=== PATIENT | male | born 1950 | race Caucasian/White ===

== ENCOUNTER 2017-05-18 04:16 | Emergency (ER) | payer MEDICARE, BC ==
[2017-05-18] MEDS ORDERED: Nitroglycerin 2% Oint 1 GM UD Packet TOP ONE (04:28)
[2017-05-18] MEDS ORDERED: Morphine 4 MG/ML Syringe IVPUSH ONE (04:29)
[2017-05-18] MEDS ORDERED: Ondansetron 4 MG/2 ML SDV IVPUSH ONE (04:29)
[2017-05-18] MEDS ORDERED: Aspirin 81 MG Tab.Chew PO ONE (04:35)
[2017-05-18 04:56] LABS: CHLORIDE,CL 108 mmol/L (98-107); SODIUM,NA 142 mmol/L (136-148)
--- NOTE | 2017-05-18 05:20 | EDM.PDOC ---
ED HPI GENERAL MEDICAL PROBLEM - General Chief Complaint: Chest Pain Stated Complaint: HARD TIME BREATHING Time Seen by Provider: 05/18/17 05:08 - History of Present Illness INITIAL COMMENTS - FREE TEXT/NARRATIVE: HISTORY AND PHYSICAL: History of present illness: Patient 67-year-old white male history of hypertension cardiac ablation for atrial fibrillation on hypercholesterolemia presents with a concern of chest pain he states he's had off and on for 1 week with associated cold symptoms. Patient has had mild associated shortness of breath. Patient is currently on eliquis Review of systems: As per history of present illness and below otherwise all systems reviewed and negative. Past medical history: As per history of present illness and as reviewed below otherwise noncontributory. Surgical history: As per history of present illness and as reviewed below otherwise noncontributory. Social history: No reported history of drug or alcohol abuse. Family history: As per history of present illness and as reviewed below otherwise noncontributory. Physical exam: HEENT: Atraumatic, normocephalic, pupils reactive, negative for conjunctival pallor or scleral icterus, mucous membranes moist, throat clear, neck supple, nontender, trachea midline. Lungs: Clear to auscultation, breath sounds equal bilaterally, chest nontender. Heart: S1S2, regular, negative for clicks, rubs, or JVD. Abdomen: Soft, nondistended, nontender. Negative for masses or hepatosplenomegaly. Negative for costovertebral tenderness. Pelvis: Stable nontender. Genitourinary: Deferred. Rectal: Deferred. Extremities: Atraumatic, negative for cords or calf pain. Neurovascular unremarkable. Neuro: Awake, alert, oriented. Cranial nerves II through XII unremarkable. Cerebellum unremarkable. Motor and sensory unremarkable throughout. Exam nonfocal. Diagnostics: CBC CMP troponin PT/INR chest x-ray EKG influenza screen Therapeutics: IV O2 monitor aspirin 324 mg Nitropaste 1 inch Impression: #1 chest pain #2 elevated troponin Definitive disposition and diagnosis as appropriate pending reevaluation and review of above. chest Pain Score (Numeric/FACES): 3 - Related Data Allergies Allergy/AdvReac Type Severity Reaction Status Date / Time latex Allergy Blisters Verified 05/18/17 04:46 Home Meds: Home Meds Acyclovir 1 tab PO DAILY 05/18/17 [History] Apixaban [Eliquis] 1 tab PO DAILY 05/18/17 [History] Cetirizine [ZyrTEC] 1 tab PO DAILY 05/18/17 [History] Losartan [Cozaar] 50 mg PO DAILY 05/18/17 [History] Multivitamin [Multivitamins] 1 cap PO DAILY 05/18/17 [History] Sotalol [Betapace] 1 tab PO DAILY 05/18/17 [History] Spironolactone [Aldactone] 1 tab PO DAILY 05/18/17 [History] Tamsulosin [Flomax] 1 cap PO DAILY 05/18/17 [History] atorvaSTATin [Lipitor] 20 mg PO BEDTIME 05/18/17 [History] Past Medical History HEENT History: Reports: Impaired Vision, Other (See Below) Other HEENT History: Cold sores Cardiovascular History: Reports: Afib, High Cholesterol, Hypertension Gastrointestinal History: Reports: GERD Genitourinary History: Reports: BPH, Other (See Below) Other Genitourinary History: Urinary Frequency Endocrine/Metabolic History: Reports: Obesity/BMI 30+ - Past Surgical History Cardiovascular Surgical History: Reports: Cardiac Ablation Social & Family History - Family History Family Medical History: Noncontributory - Tobacco Use Smoking Status *Q: Never Smoker - Recreational Drug Use Recreational Drug Use: No ED ROS GENERAL - Review of Systems Review Of Systems: ROS reveals no pertinent complaints other than HPI. ED EXAM, GENERAL - Physical Exam Exam: See Below (See dictation) Course - Vital Signs Text/Narrative:: Patient is pain-free status post nitroglycerin aspirin I discussed transfer with Dr. Avendano at [facility] who graciously accepted the patient will be transferred via ground ambulance Last Recorded V/S: Last Vital Signs Temp 36.6 C 05/18/17 04:39 Pulse 73 05/18/17 04:45 Resp 20 05/18/17 04:45 BP 149/98 H 05/18/17 04:45 Pulse Ox 96 05/18/17 04:45 - Orders/Labs/Meds Orders: Active Orders 24 hr Category Date Time Status EKG 12 Lead [EKG Documentation Completion] [RC] STAT Care 05/18/17 04:34 Active Chest 1V Frontal [CR] Stat Exams 05/18/17 04:31 Taken INFLUENZA A+B AG SCREEN [RM] Stat Lab 04/11/18 04:58 Ordered Labs: Laboratory Tests 05/18/17 05/18/17 05/18/17 Range/Units 04:18 04:18 04:18 WBC 5.22 (4.0-11.0) K/uL RBC 5.25 (4.50-5.90) M/uL Hgb 16.0 (13.0-17.0) g/dL Hct 46.4 (38.0-50.0) % MCV 88.4 (80.0-98.0) fL MCH 30.5 (27.0-32.0) pg MCHC 34.5 (31.0-37.0) g/dL RDW Std Deviation 45.2 (28.0-62.0) fl RDW Coeff of Aamir 14 (11.0-15.0) % Plt Count 155 (150-400) K/uL MPV 9.60 (7.40-12.00) fL Nucleated RBC % 0.0 /100WBC Nucleated RBCs # 0 K/uL INR 1.03 Sodium 142 (136-148) mmol/L Potassium 4.2 (3.5-5.1) mmol/L Chloride 108 H (98-107) mmol/L Carbon Dioxide 24.7 (21.0-32.0) mmol/L BUN 23 H (7.0-18.0) mg/dL Creatinine 1.3 (0.8-1.3) mg/dL Est Cr Clr Drug Dosing TNP Estimated GFR (MDRD) 55.4 ml/min Glucose 98 (74-106) mg/dL Calcium 8.9 (8.5-10.1) mg/dL Total Bilirubin 0.9 (0.2-1.0) mg/dL AST 22 (15-37) IU/L ALT 20 (14-63) IU/L Alkaline Phosphatase 76 (46-116) U/L Troponin I 0.109 H* (0.000-0.056) ng/mL Total Protein 7.6 (6.4-8.2) g/dL Albumin 3.8 (3.4-5.0) g/dL Globulin 3.8 H (2.0-3.5) g/dL Albumin/Globulin Ratio 1.0 L (1.3-2.8) Meds: Medications Discontinued Medications Generic Name Dose Route Start Last Admin Trade Name Freq PRN Reason Stop Dose Admin Aspirin 324 mg 05/18/17 21:00 Aspirin PO BEDTIME PRIMO Aspirin 324 mg 05/18/17 04:35 05/18/17 04:37 Aspirin PO 05/18/17 04:36 324 mg ONETIME ONE Administration Morphine Sulfate 2 mg 05/18/17 04:29 05/18/17 04:43 Morphine IVPUSH 05/18/17 04:30 Not Given ONETIME ONE Nitroglycerin 1 gm 05/18/17 04:28 05/18/17 04:38 Nitro-Bid 2% TOP 05/18/17 04:29 1 gm ONETIME ONE Administration Ondansetron HCl 4 mg 05/18/17 04:29 05/18/17 04:44 Zofran IVPUSH 05/18/17 04:30 Not Given ONETIME ONE Departure - Departure Time of Disposition: 05:19 Disposition: DC/Tfer to Acute Hospital 02 Condition: Good Clinical Impression: Acute coronary syndrome - Discharge Information - My Orders Last 24 Hours: My Active Orders 05/18/17 04:31 Chest 1V Frontal [CR] Stat 05/18/17 04:34 EKG 12 Lead [EKG Documentation Completion] [RC] STAT 05/18/17 04:58 INFLUENZA A+B AG SCREEN [RM] Stat - Assessment/Plan Last 24 Hours: My Active Orders 05/18/17 04:31 Chest 1V Frontal [CR] Stat 05/18/17 04:34 EKG 12 Lead [EKG Documentation Completion] [RC] STAT 05/18/17 04:58 INFLUENZA A+B AG SCREEN [RM] Stat
[2017-05-18] MEDS ORDERED: Sodium Chloride 0.9% 10 ML Syringe FLUSH PRN (05:25)
[2017-05-18] MEDS ORDERED: Sodium Chloride 0.9% 2.5 ML Syringe FLUSH PRN (05:25)
--- NOTE | 2017-05-18 11:03 | CR ---
EXAM DATE: 05/18/17 PATIENT'S AGE: 67 Patient: LINDA MACHADO Facility: [place], [place] Site . Site : [id number] Study: XRay Chest [id number]/11/2018 4:44:14 AM Ordering Physician: Doctor Salcido Final Report: INDICATION: SOB, CP, rash TECHNIQUE: Chest 1 view COMPARISON: None FINDINGS: Cardiovascular and mediastinum: Heart size and vasculature are normal in caliber and appearance. Mediastinum is within normal limits. Lungs and pleural space: No focal consolidation. No sign of pleural effusion. No pneumothorax. Bones: No significant findings. Other: Surgical clips within the imaged abdomen IMPRESSION: No acute cardiopulmonary disease. Dictated by Magen Marin MD @ 05/18/2017 5:48:59 AM Dictated by: Magen Marin MD @ 05/18/2017 05:50:40 (Electronic Signature) Report Signed by Proxy. [facility]OSPITALRahat
[2017-05-18] MEDS ORDERED: Aspirin 81 MG Tab.Chew PO SCH (21:00)
== END 2017-05-18 06:10 ==
LOC: MW.ED 04:16
DX: I24.9 Acute ischemic heart disease, unspecified (principal); I10 Essential (primary) hypertension; E78.00 Pure hypercholesterolemia, unspecified; I48.91 Unspecified atrial fibrillation; E66.9 Obesity, unspecified; Z79.899 Other long term (current) drug therapy; Z91.040 Latex allergy status; K21.9 Gastro-esophageal reflux disease without esophagitis
CPT/HCPCS: 36415; 71045; 80053; 84484; 85027; 85610; 87804; 93005; 99285; A9270

== ENCOUNTER 2018-03-13 22:07 | Emergency (ER) | payer MEDICARE, BC ==
[2018-03-13] MEDS ORDERED: Sodium Chloride 0.9% 1,000 ML IV ONE (22:08)
[2018-03-13] MEDS ORDERED: Albuterol/Ipratropium 3.0-0.5 MG/3 ML Neb Soln NEB ONE (22:08)
[2018-03-13] MEDS ORDERED: methylPREDNISolone Sodium Succinate 125 MG/2 ML SDV IVPUSH ONE (22:09)
--- NOTE | 2018-03-13 22:09 | EDM.PDOC ---
ED HPI GENERAL MEDICAL PROBLEM - General Chief Complaint: Respiratory Problem Stated Complaint: PT HAS CHEST PAINS Time Seen by Provider: 03/13/18 22:09 Source of Information: Reports: Patient - History of Present Illness INITIAL COMMENTS - FREE TEXT/NARRATIVE: HISTORY AND PHYSICAL: History of present illness: [Patient presents with shortness of breath on initial exam is somewhat wheezy with diminished breath sounds on inspiration slight end expiratory wheeze noted no apparent distress no pursed lip breathing He has no fever nausea vomiting chills sweats no chest pain headache dizziness or palpitation no bowel or urine symptoms Medically improved with DuoNeb and Solu-Medrol Auditory O2 sat performed 95, patient's troponin is elevated at baseline he has chronic elevated troponins EKG is normal sinus rhythm no acute change, he was sent out previously for similar troponin with reevaluation in mind that ultimately discharged without any further treatment Office offered observation admission however we are on diversion at this time, he refused as he does not want to be transferred to [place] at this time ] Review of systems: As per history of present illness and below otherwise all systems reviewed and negative. Past medical history: As per history of present illness and as reviewed below otherwise noncontributory. Surgical history: As per history of present illness and as reviewed below otherwise noncontributory. Social history: No reported history of drug or alcohol abuse. Family history: As per history of present illness and as reviewed below otherwise noncontributory. Physical exam: HEENT: Atraumatic, normocephalic, pupils reactive, negative for conjunctival pallor or scleral icterus, mucous membranes moist, throat clear, neck supple, nontender, trachea midline. Lungs: Clear to auscultation, breath sounds equal bilaterally, chest nontender. Heart: S1S2, regular, negative for clicks, rubs, or JVD. Abdomen: Soft, nondistended, nontender. Negative for masses or hepatosplenomegaly. Negative for costovertebral tenderness. Pelvis: Stable nontender. Genitourinary: Deferred. Rectal: Deferred. Extremities: Atraumatic, negative for cords or calf pain. Neurovascular unremarkable. Neuro: Awake, alert, oriented. Cranial nerves II through XII unremarkable. Cerebellum unremarkable. Motor and sensory unremarkable throughout. Exam nonfocal. Diagnostics: []Influenza CBC CMP troponin EKG Chest 1 view Therapeutics: [] DuoNeb Solu-Medrol Z-Benjy Medrol Dosepak Pro-air HFA Impression: [] acute bronchitis Definitive disposition and diagnosis as appropriate pending reevaluation and review of above. - Related Data Allergies Allergy/AdvReac Type Severity Reaction Status Date / Time latex Allergy Blisters Verified 03/13/18 22:15 Home Meds: Home Meds Acyclovir 1 tab PO DAILY 05/18/17 [History] Apixaban [Eliquis] 1 tab PO DAILY 05/18/17 [History] Cetirizine [ZyrTEC] 1 tab PO DAILY 05/18/17 [History] Losartan [Cozaar] 50 mg PO DAILY 05/18/17 [History] Multivitamin [Multivitamins] 1 cap PO DAILY 05/18/17 [History] Sotalol [Betapace] 1 tab PO DAILY 05/18/17 [History] Spironolactone [Aldactone] 1 tab PO DAILY 05/18/17 [History] Tamsulosin [Flomax] 1 cap PO DAILY 05/18/17 [History] atorvaSTATin [Lipitor] 20 mg PO BEDTIME 05/18/17 [History] Past Medical History HEENT History: Reports: Impaired Vision, Other (See Below) Other HEENT History: Cold sores Cardiovascular History: Reports: Afib, High Cholesterol, Hypertension Gastrointestinal History: Reports: GERD Genitourinary History: Reports: BPH, Other (See Below) Other Genitourinary History: Urinary Frequency Endocrine/Metabolic History: Reports: Obesity/BMI 30+ Social & Family History - Family History Family Medical History: Noncontributory ED ROS GENERAL - Review of Systems Review Of Systems: See Below ED EXAM, GENERAL - Physical Exam Exam: See Below Course - Vital Signs Last Recorded V/S: Last Vital Signs Temp 97.8 F 03/13/18 22:07 Pulse 79 03/13/18 22:07 Resp 24 H 03/13/18 22:28 BP 153/83 H 03/13/18 22:07 Pulse Ox 95 03/13/18 22:28 - Orders/Labs/Meds Orders: Active Orders 24 hr Category Date Time Status EKG Documentation Completion [RC] STAT Care 03/13/18 22:08 Active RT Aerosol Therapy [RC] ASDIRECTED Care 03/13/18 22:09 Active UA RFX HARI AND CULT IF INDIC [URIN] Stat Lab 03/13/18 22:08 Ordered Labs: Laboratory Tests 03/13/18 03/13/18 Range/Units 22:13 22:13 WBC 6.97 (4.0-11.0) K/uL RBC 4.93 (4.50-5.90) M/uL Hgb 14.6 (13.0-17.0) g/dL Hct 43.6 (38.0-50.0) % MCV 88.4 (80.0-98.0) fL MCH 29.6 (27.0-32.0) pg MCHC 33.5 (31.0-37.0) g/dL RDW Std Deviation 46.6 (28.0-62.0) fl RDW Coeff of Aamir 14 (11.0-15.0) % Plt Count 184 (150-400) K/uL MPV 9.50 (7.40-12.00) fL Neut % (Auto) 52.1 (48.0-80.0) % Lymph % (Auto) 33.3 (16.0-40.0) % Sherman % (Auto) 9.8 (0.0-15.0) % Eos % (Auto) 4.2 (0.0-7.0) % Baso % (Auto) 0.6 (0.0-1.5) % Neut # (Auto) 3.6 (1.4-5.7) K/uL Lymph # (Auto) 2.3 (0.6-2.4) K/uL Sherman # (Auto) 0.7 (0.0-0.8) K/uL Eos # (Auto) 0.3 (0.0-0.7) K/uL Baso # (Auto) 0.0 (0.0-0.1) K/uL Nucleated RBC % 0.0 /100WBC Nucleated RBCs # 0 K/uL Sodium 144 (136-148) mmol/L Potassium 3.7 (3.5-5.1) mmol/L Chloride 109 H (98-107) mmol/L Carbon Dioxide 25.8 (21.0-32.0) mmol/L BUN 22 H (7.0-18.0) mg/dL Creatinine 1.4 H (0.8-1.3) mg/dL Est Cr Clr Drug Dosing 58.66 mL/min Estimated GFR (MDRD) 50.7 ml/min Glucose 105 (74-106) mg/dL Calcium 8.9 (8.5-10.1) mg/dL Total Bilirubin 0.9 (0.2-1.0) mg/dL AST 19 (15-37) IU/L ALT 19 (14-63) IU/L Alkaline Phosphatase 88 (46-116) U/L Troponin I 0.114 H* (0.000-0.056) ng/mL Total Protein 7.2 (6.4-8.2) g/dL Albumin 3.5 (3.4-5.0) g/dL Globulin 3.7 (2.6-4.0) g/dL Albumin/Globulin Ratio 0.9 (0.9-1.6) Meds: Medications Discontinued Medications Generic Name Dose Route Start Last Admin Trade Name Freq PRN Reason Stop Dose Admin Albuterol/Ipratropium 3 ml 03/13/18 22:08 03/13/18 22:20 Duoneb 3.0-0.5 Mg/3 Ml NEB 03/13/18 22:09 3 ml ONETIME ONE Administration Albuterol/Ipratropium Confirm 03/13/18 22:10 03/13/18 22:21 Duoneb 3.0-0.5 Mg/3 Ml Administered 03/13/18 22:11 Not Given Dose 3 ml .ROUTE .STK-MED ONE Sodium Chloride 1,000 mls @ 999 mls/hr 03/13/18 22:08 03/13/18 22:21 Normal Saline IV 03/13/18 23:08 999 mls/hr STAT ONE Administration Methylprednisolone Sodium Succinate 125 mg 03/13/18 22:09 03/13/18 22:23 Solu-Medrol IVPUSH 03/13/18 22:10 125 mg ONETIME ONE Administration Methylprednisolone Sodium Succinate Confirm 03/13/18 22:22 03/13/18 22:31 Solu-Medrol Administered 03/13/18 22:23 Not Given Dose 125 mg .ROUTE .STK-MED ONE Departure - Departure Time of Disposition: 23:38 Disposition: Home, Self-Care 01 Condition: Good Clinical Impression: Sinusitis, Bronchitis - Discharge Information Referrals: PCP,None [Primary Care Provider] - Forms: ED Department Discharge Additional Instructions: The following information is given to patients seen in the emergency department who are being discharged to home. This information is to outline your options for follow-up care. We provide all patients seen in our emergency department with a follow-up referral. The need for follow-up, as well as the timing and circumstances, are variable depending upon the specifics of your emergency department visit. If you don't have a primary care physician on staff, we will provide you with a referral. We always advise you to contact your personal physician following an emergency department visit to inform them of the circumstance of the visit and for follow-up with them and/or the need for any referrals to a consulting specialist. The emergency department will also refer you to a specialist when appropriate. This referral assures that you have the opportunity for follow-up care with a specialist. All of these measure are taken in an effort to provide you with optimal care, which includes your follow-up. Under all circumstances we always encourage you to contact your private physician who remains a resource for coordinating your care. When calling for follow-up care, please make the office aware that this follow-up is from your recent emergency room visit. If for any reason you are refused follow-up, please contact the [facility] emergency department at and asked to speak to the emergency department charge nurse. - My Orders Last 24 Hours: My Active Orders 03/13/18 22:08 EKG Documentation Completion [RC] STAT UA RFX HARI AND CULT IF INDIC [URIN] Stat 03/13/18 22:09 RT Aerosol Therapy [RC] ASDIRECTED - Assessment/Plan Last 24 Hours: My Active Orders 03/13/18 22:08 EKG Documentation Completion [RC] STAT UA RFX HARI AND CULT IF INDIC [URIN] Stat 03/13/18 22:09 RT Aerosol Therapy [RC] ASDIRECTED
[2018-03-13] MEDS ORDERED: Albuterol/Ipratropium 3.0-0.5 MG/3 ML Neb Soln ONE (22:10)
[2018-03-13] MEDS ORDERED: methylPREDNISolone Sodium Succinate 125 MG/2 ML SDV ONE (22:22)
--- NOTE | 2018-03-13 23:13 | CR ---
INDICATION: chest pain TECHNIQUE: Chest 1 view. COMPARISON: 05/08/17 FINDINGS: Cardiovascular and mediastinum: Heart size and vasculature are normal in caliber and appearance. Mediastinum is within normal limits. Lungs and pleural space: Lungs are clear. No sign of infiltrate or mass. No sign of pleural effusion. No pneumothorax. Bones and soft tissues: No significant findings. IMPRESSION: Unremarkable chest. Dictated by: Tim Manuel MD @ 03/13/2018 23:12:29 (Electronically Signed)
== END 2018-03-14 00:03 | disposition home or self-care (01) ==
LOC: MW.ED 22:07
DX: J20.9 Acute bronchitis, unspecified (principal); J32.9 Chronic sinusitis, unspecified; I10 Essential (primary) hypertension; E66.9 Obesity, unspecified; Z91.040 Latex allergy status; Z79.899 Other long term (current) drug therapy
CPT/HCPCS: 36415; 71045; 80053; 84484; 85025; 87804; 93005; 94640; 96361; 96374; 99285; J2930; J7040; J7620-GY

== ENCOUNTER 2018-05-03 20:32 | Emergency (ER) | payer MEDICARE, BC ==
--- NOTE | 2018-05-03 21:24 | CR ---
Indication: Fall Technique: Three views right knee Comparison: None Findings: Bones: Alignment is normal. No fractures or bone lesions. Joint spaces: Unremarkable. Soft tissues: Unremarkable. Impression: Negative. Dictated by Linda Young MD @ May 03 2018 9:21PM Signed by Dr. Linda Young @ May 03 2018 9:22PM
--- NOTE | 2018-05-03 21:40 | EDM.PDOC ---
ED HPI GENERAL MEDICAL PROBLEM - General Chief Complaint: Lower Extremity Injury/Pain Stated Complaint: PT HURT RT KNEE Time Seen by Provider: 05/03/18 21:39 Source of Information: Reports: Patient History Limitations: Reports: No Limitations - History of Present Illness INITIAL COMMENTS - FREE TEXT/NARRATIVE: HISTORY AND PHYSICAL: History of present illness: Patient is a 68-year-old male here with complaint of right knee injury. He states he fell this afternoon "jamming" his knee. He's not certain if he twisted it or hit it directly. He is having pain, especially when rotating on the knee. He denies any buckling, catching, clicking, or popping. Review of systems: As per history of present illness and below otherwise all systems reviewed and negative. Past medical history: As per history of present illness and as reviewed below otherwise noncontributory. Surgical history: As per history of present illness and as reviewed below otherwise noncontributory. Social history: No reported history of drug or alcohol abuse. Family history: As per history of present illness and as reviewed below otherwise noncontributory. Physical exam: General: Patient sitting comfortably in no acute distress and nontoxic appearing HEENT: Atraumatic, normocephalic, pupils reactive, negative for conjunctival pallor or scleral icterus, mucous membranes moist, throat clear, neck supple, nontender, trachea midline. No meningeal signs. Lungs: Clear to auscultation, breath sounds equal bilaterally, chest nontender. Heart: S1S2, regular, negative for clicks, rubs, or overt murmur. Abdomen: Soft, nondistended, nontender. Negative for masses or hepatosplenomegaly. Negative for costovertebral tenderness. No rigidity, rebound , guarding. Pelvis: Stable nontender. Genitourinary: Deferred. Rectal: Deferred. Extremities: There is no obvious deformity or swelling of the knee. Pain to palpation of the lateral joint line. Negaitive anterior and posterior drawer, negative varus and valgus stress. Atraumatic, negative for cords or calf pain. Neurovascular unremarkable. Neuro: Awake, alert, oriented. Cranial nerves II through XII unremarkable. Cerebellum unremarkable. Motor and sensory unremarkable throughout. Exam nonfocal. Notes: Diagnostics: x-ray right knee Therapeutics: Offered knee immobilizer which he declined Prescriptions: None Impression: Right knee injury Plan: 1. Ice, elevate, and motrin or tylenol as needed 2. Follow up with orthopedics, please call the number provided to schedule an appointment 3. Return to ED as needed as discussed Definitive disposition and diagnosis as appropriate pending reevaluation and review of above. Right Knee Pain Score (Numeric/FACES): 4 - Related Data Allergies Allergy/AdvReac Type Severity Reaction Status Date / Time latex Allergy Blisters Verified 05/03/18 21:14 lisinopril Allergy Cough Verified 05/03/18 21:14 Home Meds: Home Meds Acyclovir 1 tab PO DAILY 05/18/17 [History] Cetirizine [ZyrTEC] 1 tab PO DAILY 05/18/17 [History] Losartan [Cozaar] 50 mg PO DAILY 05/18/17 [History] Multivitamin [Multivitamins] 1 cap PO DAILY 05/18/17 [History] Sotalol [Betapace] 1 tab PO DAILY 05/18/17 [History] Spironolactone [Aldactone] 1 tab PO DAILY 05/18/17 [History] Tamsulosin [Flomax] 1 cap PO DAILY 05/18/17 [History] atorvaSTATin [Lipitor] 20 mg PO BEDTIME 05/18/17 [History] Rivaroxaban [Xarelto] 10 mg PO DAILY 05/03/18 [History] Past Medical History HEENT History: Reports: Impaired Vision, Other (See Below) Other HEENT History: Cold sores Cardiovascular History: Reports: Afib, High Cholesterol, Hypertension Respiratory History: Reports: Bronchitis, Recurrent Gastrointestinal History: Reports: GERD Genitourinary History: Reports: BPH, Other (See Below) Other Genitourinary History: Urinary Frequency Musculoskeletal History: Reports: None Endocrine/Metabolic History: Reports: Obesity/BMI 30+ - Past Surgical History Other Musculoskeletal Surgeries/Procedures:: MCL repair on left knee Social & Family History - Family History Family Medical History: Noncontributory - Tobacco Use Smoking Status *Q: Never Smoker - Caffeine Use Caffeine Use: Reports: None - Recreational Drug Use Recreational Drug Use: No Review of Systems - Review of Systems Review Of Systems: ROS reveals no pertinent complaints other than HPI. ED EXAM, GENERAL - Physical Exam Exam: See Below (see dictation) Course - Vital Signs Last Recorded V/S: Last Vital Signs Temp 97.2 F 05/03/18 21:15 Pulse 65 05/03/18 21:15 Resp 18 05/03/18 21:15 BP 118/61 05/03/18 21:15 Pulse Ox 95 05/03/18 21:15 Departure - Departure Time of Disposition: 21:39 Disposition: Home, Self-Care 01 Condition: Good Clinical Impression: Right knee injury - Discharge Information Referrals: PCP,None [Primary Care Provider] - Liza Power MD [Physician] - 2 Weeks (right knee injury ) Forms: ED Department Discharge Additional Instructions: The following information is given to patients seen in the emergency department who are being discharged to home. This information is to outline your options for follow-up care. We provide all patients seen in our emergency department with a follow-up referral. The need for follow-up, as well as the timing and circumstances, are variable depending upon the specifics of your emergency department visit. If you don't have a primary care physician on staff, we will provide you with a referral. We always advise you to contact your personal physician following an emergency department visit to inform them of the circumstance of the visit and for follow-up with them and/or the need for any referrals to a consulting specialist. The emergency department will also refer you to a specialist when appropriate. This referral assures that you have the opportunity for follow-up care with a specialist. All of these measure are taken in an effort to provide you with optimal care, which includes your follow-up. Under all circumstances we always encourage you to contact your private physician who remains a resource for coordinating your care. When calling for follow-up care, please make the office aware that this follow-up is from your recent emergency room visit. If for any reason you are refused follow-up, please contact the [facility] Emergency Department at and asked to speak to the emergency department charge nurse. [facility] Special[facility] - Orth[facility] Professional [address], [address] [place] [address] 1. Ice, elevate, and motrin or tylenol as needed 2. Follow up with orthopedics, please call the number provided to schedule an appointment 3. Return to ED as needed as discussed
== END 2018-05-03 22:04 | disposition home or self-care (01) ==
LOC: MW.ED 20:32
DX: S89.91XA Unspecified injury of right lower leg, initial encounter (principal); I10 Essential (primary) hypertension; E78.00 Pure hypercholesterolemia, unspecified; K21.9 Gastro-esophageal reflux disease without esophagitis; Z91.040 Latex allergy status; Z88.8 Allergy status to other drugs, medicaments and biological substances; Z79.899 Other long term (current) drug therapy; X58.XXXA Exposure to other specified factors, initial encounter
CPT/HCPCS: 73562-26-RT; 73562-RT; 99283-25

== ENCOUNTER 2018-05-29 14:01 | Emergency (ER) | payer MEDICARE, BC ==
--- NOTE | 2018-05-29 14:14 | EDM.PDOC ---
ED HPI GENERAL MEDICAL PROBLEM - General Chief Complaint: Chest Pain Stated Complaint: RACING HEART SHORTNESS OF BREATH NUMBESS ON LT ARM Time Seen by Provider: 05/29/18 14:06 - History of Present Illness INITIAL COMMENTS - FREE TEXT/NARRATIVE: HISTORY AND PHYSICAL: History of present illness: Patient is 68-year-old white male presents with a concern of irregular heartbeat he states this been off and on this past weekend and worse today. He denies chest pain nausea vomiting shortness of breath or other concern he has had history of this in the past and was recently taken off of his sotalol and currently is on aspirin daily Review of systems: As per history of present illness and below otherwise all systems reviewed and negative. Past medical history: As per history of present illness and as reviewed below otherwise noncontributory. Surgical history: As per history of present illness and as reviewed below otherwise noncontributory. Social history: No reported history of drug or alcohol abuse. Family history: As per history of present illness and as reviewed below otherwise noncontributory. Physical exam: HEENT: Atraumatic, normocephalic, pupils reactive, negative for conjunctival pallor or scleral icterus, mucous membranes moist, throat clear, neck supple, nontender, trachea midline. Lungs: Clear to auscultation, breath sounds equal bilaterally, chest nontender. Heart: S1S2, irregularly irregular, negative for clicks, rubs, or JVD. Abdomen: Soft, nondistended, nontender. Negative for masses or hepatosplenomegaly. Negative for costovertebral tenderness. Pelvis: Stable nontender. Genitourinary: Deferred. Rectal: Deferred. Extremities: Atraumatic, negative for cords or calf pain. Neurovascular unremarkable. Neuro: Awake, alert, oriented. Cranial nerves II through XII unremarkable. Cerebellum unremarkable. Motor and sensory unremarkable throughout. Exam nonfocal. Diagnostics: CBC CMP troponin PT/INR chest x-ray EKG Therapeutics: IV O2 monitor Impression: #1 atrial fibrillation with controlled ventricular rate Definitive disposition and diagnosis as appropriate pending reevaluation and review of above. Left arm/chest Pain Score (Numeric/FACES): 6 - Related Data Allergies Allergy/AdvReac Type Severity Reaction Status Date / Time latex Allergy Blisters Verified 05/29/18 14:11 lisinopril Allergy Cough Verified 05/29/18 14:11 walnuts Allergy Swelling Uncoded 05/29/18 14:11 Home Meds: Home Meds Acyclovir 1 tab PO DAILY 05/18/17 [History] Cetirizine [ZyrTEC] 1 tab PO DAILY 05/18/17 [History] Losartan [Cozaar] 50 mg PO DAILY 05/18/17 [History] Multivitamin [Multivitamins] 1 cap PO DAILY 05/18/17 [History] Spironolactone [Aldactone] 1 tab PO DAILY 05/18/17 [History] Tamsulosin [Flomax] 1 cap PO DAILY 05/18/17 [History] atorvaSTATin [Lipitor] 20 mg PO BEDTIME 05/18/17 [History] Aspirin 325 mg PO DAILY 05/29/18 [History] Past Medical History HEENT History: Reports: Impaired Vision, Other (See Below) Other HEENT History: Cold sores Cardiovascular History: Reports: Afib, High Cholesterol, Hypertension Respiratory History: Reports: Bronchitis, Recurrent Gastrointestinal History: Reports: GERD Genitourinary History: Reports: BPH, Other (See Below) Other Genitourinary History: Urinary Frequency Musculoskeletal History: Reports: None Endocrine/Metabolic History: Reports: Obesity/BMI 30+ - Past Surgical History Other Musculoskeletal Surgeries/Procedures:: MCL repair on left knee Social & Family History - Family History Family Medical History: Noncontributory - Caffeine Use Caffeine Use: Reports: None ED ROS GENERAL - Review of Systems Review Of Systems: ROS reveals no pertinent complaints other than HPI. 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0-37.0) g/dL RDW Std Deviation 48.1 (28.0-62.0) fl RDW Coeff of Aamir 15 (11.0-15.0) % Plt Count 163 (150-400) K/uL MPV 9.50 (7.40-12.00) fL Neut % (Auto) 52.6 (48.0-80.0) % Lymph % (Auto) 37.8 (16.0-40.0) % [place] % (Auto) 7.3 (0.0-15.0) % Eos % (Auto) 2.0 (0.0-7.0) % Baso % (Auto) 0.3 (0.0-1.5) % Neut # (Auto) 3.5 (1.4-5.7) K/uL Lymph # (Auto) 2.5 H (0.6-2.4) K/uL [place] # (Auto) 0.5 (0.0-0.8) K/uL Eos # (Auto) 0.1 (0.0-0.7) K/uL Baso # (Auto) 0.0 (0.0-0.1) K/uL Nucleated RBC % 0.0 /100WBC Nucleated RBCs # 0 K/uL INR 1.01 Sodium 142 (136-148) mmol/L Potassium 3.8 (3.5-5.1) mmol/L Chloride 108 H (98-107) mmol/L Carbon Dioxide 21.8 (21.0-32.0) mmol/L BUN 16 (7.0-18.0) mg/dL Creatinine 1.3 (0.8-1.3) mg/dL Est Cr Clr Drug Dosing 61.35 mL/min Estimated GFR (MDRD) 55.2 ml/min Glucose 143 H (74-106) mg/dL Calcium 8.5 (8.5-10.1) mg/dL Total Bilirubin 1.5 H (0.2-1.0) mg/dL AST 16 (15-37) IU/L ALT 23 (14-63) IU/L Alkaline Phosphatase 86 (46-116) U/L Troponin I 0.277 H* (0.000-0.056) ng/mL Total Protein 6.8 (6.4-8.2) g/dL Albumin 3.9 (3.4-5.0) g/dL Globulin 2.9 (2.6-4.0) g/dL Albumin/Globulin Ratio 1.3 (0.9-1.6) Meds: Medications Discontinued Medications Generic Name Dose Route Start Last Admin Trade Name Freq PRN Reason Stop Dose Admin Metoprolol Succinate 50 mg 05/29/18 14:44 05/29/18 15:02 Toprol Xl PO 05/29/18 14:45 Not Given ONETIME ONE Rivaroxaban 20 mg 05/29/18 14:48 05/29/18 15:02 Xarelto PO 05/29/18 14:49 20 mg ONETIME ONE Administration Departure - Departure Time of Disposition: 15:40 Disposition: Home, Self-Care 01 Condition: Good Clinical Impression: Atrial fibrillation - Discharge Information Referrals: PCP,Unknown [Primary Care Provider] - Forms: ED Department Discharge Additional Instructions: The following information is given to patients seen in the emergency department who are being discharged to home. This information is to outline your options for follow-up care. We provide all patients seen in our emergency department with a follow-up referral. The need for follow-up, as well as the timing and circumstances, are variable depending upon the specifics of your emergency department visit. If you don't have a primary care physician on staff, we will provide you with a referral. We always advise you to contact your personal physician following an emergency department visit to inform them of the circumstance of the visit and for follow-up with them and/or the need for any referrals to a consulting specialist. The emergency department will also refer you to a specialist when appropriate. This referral assures that you have the opportunity for followup care with a specialist. All of these measure are taken in an effort to provide you with optimal care, which includes your followup. Under all circumstances we always encourage you to contact your private physician who remains a resource for coordinating your care. When calling for followup care, please make the office aware that this follow-up is from your recent emergency room visit. If for any reason you are refused follow-up, please contact the [facility] emergency department at and asked to speak to the emergency department charge nurse. Medications as directed follow-up cardiology on Tuesday as scheduled return as needed as discussed
--- NOTE | 2018-05-29 14:34 | CR ---
EXAMINATION: Portable chest radiograph. HISTORY: Shortness of breath. FINDINGS: The trachea is midline. The cardiomediastinal silhouette is within normal limits. No pulmonary infiltrates, effusions or pneumothorax. Osseous structures appear unremarkable. IMPRESSION: No acute cardiopulmonary process.
[2018-05-29] MEDS ORDERED: Metoprolol Succinate 50 MG Tab.ER PO ONE (14:44)
[2018-05-29] MEDS ORDERED: Rivaroxaban 10 MG Tab PO ONE (14:48)
== END 2018-05-29 15:50 | disposition home or self-care (01) ==
LOC: MW.ED 14:01
DX: I48.91 Unspecified atrial fibrillation (principal); I10 Essential (primary) hypertension; E78.00 Pure hypercholesterolemia, unspecified; Z79.82 Long term (current) use of aspirin; Z79.899 Other long term (current) drug therapy; Z91.040 Latex allergy status; Z91.018 Allergy to other foods; Z88.8 Allergy status to other drugs, medicaments and biological substances
CPT/HCPCS: 36415; 71045; 80053; 84484; 85025; 85610; 93005; 99285; A9270; 99284

== ENCOUNTER 2019-04-06 10:02 | Day surgery (SDC) | payer MEDICARE, BC ==
[~2019-04-06 10:02] MED LIST: 50% Dextrose in Water 50 ML Syringe IVPUSH PRN; Albuterol 0.083% 2.5 MG/3 ML Neb Soln NEB PRN; Atropine 0.1 MG/ML 10 ML Syringe IVPUSH PRN; EPINEPHrine 1:10,000 1 MG/10 ML Syringe IVPUSH PRN; Lactated Ringers 1,000 ML IV SCH; Lidocaine 2% 5 ML SDV ONE; Midazolam 1 MG/ML 2 ML SDV ONE; Naloxone 0.4 MG/ML Syringe IVPUSH PRN; Propofol 200 MG/20 ML SDV ONE; fentaNYL 100 MCG/2 ML SDV IVPUSH PRN; fentaNYL 100 MCG/2 ML SDV ONE
--- NOTE | 2019-04-06 10:42 | PCM.PREANE ---
Preanesthetic Assessment - Anesthesia/Transfusion/Family Hx Anesthesia History: Prior Anesthesia Without Reaction Family History of Anesthesia Reaction: No Transfusion History: No Prior Transfusion(s) - Review of Systems General: No Symptoms Pulmonary: No Symptoms Gastrointestinal: No Symptoms Neurological: No Symptoms Other: Reports: None - Physical Assessment NPO Status Date: 04/06/19 NPO Status Time: 06:00 Vital Signs: Last Vital Signs Temp 97.0 F 04/06/19 10:06 Pulse 60 04/06/19 10:06 Resp 18 04/06/19 10:06 BP 120/81 04/06/19 10:06 Pulse Ox 96 04/06/19 10:06 Height: 6 ft Weight: 124.284 kg ASA Class: 2 Mental Status: Alert & Oriented x3 Airway Class: Mallampati = 2 Dentition: Reports: Normal Dentition ROM/Head Extension: Full Lungs: Clear to Auscultation, Normal Respiratory Effort Cardiovascular: Regular Rate, Regular Rhythm - Allergies Allergies/Adverse Reactions: Allergies Allergy/AdvReac Type Severity Reaction Status Date / Time latex Allergy Blisters Verified 04/03/19 07:09 lisinopril Allergy Cough Verified 04/03/19 07:09 tree nut [Pecans] Allergy throat Verified 04/03/19 07:09 swells walnuts Allergy Swelling Uncoded 04/03/19 07:09 - Blood Blood Available: No - Anesthesia Plan Pre-Op Medication Ordered: None - Acknowledgements Anesthesia Type Planned: General Anesthesia Pt an Appropriate Candidate for the Planned Anesthesia: Yes Alternatives and Risks of Anesthesia Discussed w Pt/Guardian: Yes Pt/Guardian Understands and Agrees with Anesthesia Plan: Yes Additional Comments: PMH: afib with unsuccessful ablation, on xarelto and metopralol, hx of NSVT, htn PLAN: tiva PreAnesthesia Questionnaire HEENT History: Reports: Impaired Vision, Other (See Below) Other HEENT History: wears glasses Cardiovascular History: Reports: Afib, Arrhythmia, High Cholesterol, Hypertension Other Cardiovascular History: hx SVT, A-fib Respiratory History: Reports: Bronchitis, Recurrent Gastrointestinal History: Reports: Colon Polyp, GERD, Hiatal Hernia Other Gastrointestinal History: hiatal hernia in the past, no heartburn or reflux since lisa fundoplication Genitourinary History: Reports: BPH, Other (See Below) Other Genitourinary History: Urinary Frequency Musculoskeletal History: Reports: Arthritis Neurological History: Reports: None Psychiatric History: Reports: None Endocrine/Metabolic History: Reports: Obesity/BMI 30+ Hematologic History: Reports: None Immunologic History: Reports: None Oncologic (Cancer) History: Reports: None Other Dermatologic History: presently has topical facial chemo cream to be applied twice daily due to sun damage ("preventative") - Infectious Disease History Infectious Disease History: Reports: None - Past Surgical History Head Surgeries/Procedures: Reports: None HEENT Surgical History: Reports: Tonsillectomy Cardiovascular Surgical History: Reports: Cardiac Ablation Respiratory Surgical History: Reports: None GI Surgical History: Reports: Colonoscopy, Lisa Fundoplication Neurological Surgical History: Reports: None Musculoskeletal Surgical History: Reports: Arthroscopic Knee Other Musculoskeletal Surgeries/Procedures:: MCL repair on left knee Oncologic Surgical History: Reports: None Dermatological Surgical History: Reports: Skin Biopsy - SUBSTANCE USE Smoking Status *Q: Never Smoker Recreational Drug Use History: No - HOME MEDS Home Medications: Home Meds Losartan [Cozaar] 50 mg PO DAILY 05/18/17 [History] Multivitamin [Multivitamins] 1 cap PO DAILY 05/18/17 [History] Spironolactone [Aldactone] 1 tab PO BID 05/18/17 [History] Tamsulosin [Flomax] 2 cap PO BEDTIME 05/18/17 [History] atorvaSTATin [Lipitor] 20 mg PO BEDTIME 05/18/17 [History] Aspirin [Adult Low Dose Aspirin EC] 81 mg CHEW DAILY 04/03/19 [History] Metoprolol Tartrate 50 mg PO BID 04/03/19 [History] Nitroglycerin 0.4 mg SL ASDIRECTED PRN 04/03/19 [History] Rivaroxaban [Xarelto] 20 mg PO ACDINNER 04/03/19 [History] fluorouraciL [Fluorouracil] 1 applic TOP BID 04/03/19 [History] - CURRENT (IN HOUSE) MEDS Current Meds: Current Medications Albuterol (Proventil Neb Soln) 2.5 mg NEB ONETIME PRN PRN Reason: Wheezing Atropine Sulfate (Atropine 0.1 Mg/Ml) 0.5 mg IVPUSH ASDIRECTED PRN PRN Reason: Hypo-perfusion Atropine Sulfate (Atropine 0.1 Mg/Ml) 1 mg IVPUSH ASDIRECTED PRN PRN Reason: Hypo-Perfusion Dextrose/Water (Dextrose 50% In Water) 50 ml IVPUSH ASDIRECTED PRN PRN Reason: Hypoglycemia Epinephrine HCl (Epinephrine 1:10,000) 1 mg IVPUSH ASDIRECTED PRN PRN Reason: ACLS Guidelines Fentanyl (Sublimaze) 50 mcg IVPUSH Q5M PRN PRN Reason: Pain Lactated Ringer's (Ringers, Lactated) 1,000 mls @ 125 mls/hr IV ASDIRECTED PRIMO Naloxone HCl (Narcan) 0.1 mg IVPUSH ASDIRECTED PRN PRN Reason: Respiratory Depression Discontinued Medications Fentanyl (Sublimaze) Confirm Administered Dose 100 mcg .ROUTE .STK-MED ONE Stop: 04/06/19 10:00 Lidocaine (Xylocaine-Mpf 2%) Confirm Administered Dose 5 ml .ROUTE .STK-MED ONE Stop: 04/06/19 09:59 Midazolam HCl (Versed 1 Mg/Ml) Confirm Administered Dose 2 mg .ROUTE .STK-MED ONE Stop: 04/06/19 10:00 Propofol (Diprivan 20 Ml) Confirm Administered Dose 400 mg .ROUTE .STK-MED ONE Stop: 04/06/19 10:00
[2019-04-06] MEDS ORDERED: Lactated Ringers 1,000 ML IV SCH (11:30)
--- NOTE | 2019-04-06 11:31 | PCM.OPNOTE ---
- General Post-Op/Procedure Note Date of Surgery/Procedure: 04/06/19 Operative Procedure(s): Colonoscopy Pre Op Diagnosis: Personal history of colon polyps. Post-Op Diagnosis: No evidence of neoplasia. Anesthesia Technique: MAC (ASA II) Primary Surgeon: Stalin Rosales Condition: Good Free Text/Narrative:: DICTATION [id number] CPT CODE 68104
--- NOTE | 2019-04-06 12:26 | PCM.POSTAN ---
POST ANESTHESIA ASSESSMENT - MENTAL STATUS Mental Status: Alert, Oriented - VITAL SIGNS Vital Signs: Last Vital Signs Temp 97.0 F 04/06/19 11:45 Pulse 68 04/06/19 11:45 Resp 14 04/06/19 11:45 BP 93/60 04/06/19 11:45 Pulse Ox 95 04/06/19 11:45 - RESPIRATORY Respiratory Status: Respiratory Rate WNL, Airway Patent, O2 Saturation Stable - CARDIOVASCULAR CV Status: Pulse Rate WNL, Blood Pressure Stable - GASTROINTESTINAL GI Status: No Symptoms - POST OP HYDRATION Hydration Status: Adequate & Stable
--- NOTE | 2019-04-06 12:26 | PCM48HPAN ---
Post Anesthesia Note - EVALUATION WITHIN 48HRS OF ANESTHETIC Vital Signs in Normal Range: Yes Patient Participated in Evaluation: Yes Respiratory Function Stable: Yes Airway Patent: Yes Cardiovascular Function Stable: Yes Hydration Status Stable: Yes Pain Control Satisfactory: Yes Nausea and Vomiting Control Satisfactory: Yes Mental Status Recovered: Yes Vital Signs: Last Vital Signs Temp 97.0 F 04/06/19 11:45 Pulse 68 04/06/19 11:45 Resp 14 04/06/19 11:45 BP 93/60 04/06/19 11:45 Pulse Ox 95 04/06/19 11:45
--- NOTE | 2019-04-06 13:08 | OR ---
SURGEON: Stalin Rosales M.D. DATE OF PROCEDURE: 04/06/2019 OPERATION PERFORMED: Colonoscopy. PRIMARY SURGEON: Stalin Rosales MD. ANESTHESIA: MAC. ASA CLASSIFICATION: II. PREOPERATIVE DIAGNOSIS: Personal history of colon polyps. POSTOPERATIVE DIAGNOSIS: No evidence of neoplasia. DESCRIPTION OF PROCEDURE: The patient was taken to the endoscopy room, positioned on the endoscopy table in the left lateral decubitus position. Time-out was called for appropriate identification of the patient and procedure. Monitored anesthesia care was provided. The colonoscope was inserted into the rectum and advanced with minimal difficulty to the cecum. The colonoscope was retroflexed to visualize the ascending colon from below, then straightened and slowly withdrawn. The cecum, ascending colon, hepatic flexure, transverse colon, splenic flexure, descending colon, sigmoid colon were very well visualized. No tumors, polyps, diverticula, or angiodysplastic changes were noted anywhere in the lower gastrointestinal tract. Once the colonoscope was withdrawn to the rectum, it was retroflexed to visualize the anal orifice from above. Again, no tumors or polyps were seen and there were no acute hemorrhoidal changes. The colonoscope was then straightened, the rectum aspirated, and the colonoscope removed. The patient tolerated the procedure well and was taken to recovery room in satisfactory condition. SIMONE / LYUDMILA /[id number]
== END 2019-04-06 12:37 | disposition home or self-care (01) ==
LOC: MW.SDS 10:02
PROVIDERS: ATTEND Surgery
DX: Z12.11 Encounter for screening for malignant neoplasm of colon (principal); I10 Essential (primary) hypertension; I47.2 Ventricular tachycardia; I48.91 Unspecified atrial fibrillation; E66.9 Obesity, unspecified; N40.0 Benign prostatic hyperplasia without lower urinary tract symptoms; E78.00 Pure hypercholesterolemia, unspecified; Z86.010 Personal history of colon polyps; Z80.0 Family history of malignant neoplasm of digestive organs; Z88.8 Allergy status to other drugs, medicaments and biological substances; Z91.040 Latex allergy status; Z91.018 Allergy to other foods; Z79.01 Long term (current) use of anticoagulants; Z79.899 Other long term (current) drug therapy; Z98.84 Bariatric surgery status; Z98.890 Other specified postprocedural states; Z86.69 Personal history of other diseases of the nervous system and sense organs; Z86.2 Personal history of diseases of the blood and blood-forming organs and certain disorders involving the immune mechanism; Z98.2 Presence of cerebrospinal fluid drainage device; Z68.37 Body mass index [BMI] 37.0-37.9, adult
CPT/HCPCS: G0105; J2001; J2250; J2704; J3010; J7120

== ENCOUNTER 2019-06-29 16:15 | Emergency (ER) | payer MEDICARE, BC ==
[2019-06-29] MEDS ORDERED: Acetaminophen/oxyCODONE 325-5 MG Tab PO ONE (16:41)
--- NOTE | 2019-06-29 16:58 | EDM.PDOC ---
ED HPI GENERAL MEDICAL PROBLEM - General Chief Complaint: Lower Extremity Injury/Pain Stated Complaint: RIGHT LEG INJURY Time Seen by Provider: 06/29/19 16:56 Source of Information: Reports: Patient History Limitations: Reports: No Limitations - History of Present Illness INITIAL COMMENTS - FREE TEXT/NARRATIVE: Patient is a 69-year-old male with past medical history of obesity hypertension presenting with a chief complaint of right lower extremity injury. Onset of injury was 30 minutes prior to arrival. Patient states he was walking and stepped in a manhole twisting his leg and causing a laceration to the anterior tibial area. Patient reports severe pain in the proximal tibia area which radiates down to the area of the laceration. Patient states ambulation is extremely painful. Patient denies any other injury. Patient denies any pain in the knee. Pmhx: Per HPI Pshx: None Family Hx: noncontributory Smoking history? no Etoh use? none Drug use? none In addition to that documented in the HPI above, the additional ROS was obtained : Constitutional: Denies fevers or chills Eyes: Denies vision changes ENMT: Denies sore throat CV: Denies chest pain Resp: Denies SOB GI: Denies vomiting or diarrhea : Denies painful urination MSK: Per HPI Neuro: Denies new numbness or tingling or weakness Heme: Denies bleeding disorders All other systems negative I have reviewed the triage vital signs Const: Well nourished, well developed, appears stated age Eyes: PERRL, no conjunctival injection HENT: NCAT, Neck supple without meningismus CV: RRR, Warm, well-perfused extremities RESP: Unlabored respiratory effort GI: soft, non-tender, non-distended, no masses MSK: Distal third laceration approximately 3 cm in length which is linear located on the anterior tibia no evidence of foreign body no pulsatile bleeding. Patient is tenderness to palpation of the tibial plateau area. No obvious deformities. Distal pulses are intact. No gross deformities of any other extremities appreciated Skin: Warm, dry. No rashes Neuro: Alert, statistics manager II-XII grossly intact. Sensation and motor function of extremities grossly intact. Psych: Appropriate mood and affect Assessment and plan [age]-year-old male presenting with right lower extremity injury. X-rays negative for acute fracture. Laceration repaired in the ER without complication. Patient still having significant pain with bending of the knee so possible that he did have ligamentous or meniscal damage with injury. Patient will be placed in the immobilizer and instructed to follow-up with orthopedic physician. Patient is neurovascularly intact. No evidence of compartment syndrome. Procedure note laceration Repair: Indication: Laceration -3 cm in length Location: Distal right lower extremity The wound was prepped and draped in sterile fashion. Anesthesia was achieved with 7 mL of (1% lidocaine with epinephrine). The wound was irrigated (with 500cc NS) and explored. There were no foreign bodies or tendon injuries. The wound was reapproximated in 2 layers 1 deep 4-0 Vicryl interrupted suture was placed. 4 superficial 3-0 nylon sutures were placed with interrupted technique. There was excellent reapproximation of the wound edges. The patient tolerated the procedure without complication. right leg/knee Pain Score (Numeric/FACES): 10 - Related Data Allergies Allergy/AdvReac Type Severity Reaction Status Date / Time latex Allergy Blisters Verified 06/29/19 16:31 lisinopril Allergy Cough Verified 06/29/19 16:31 tree nut [Pecans] Allergy throat Verified 06/29/19 16:31 swells walnuts Allergy Swelling Uncoded 06/29/19 16:31 Home Meds: Home Meds Losartan [Cozaar] 50 mg PO DAILY 05/18/17 [History] Multivitamin [Multivitamins] 1 cap PO DAILY 05/18/17 [History] Spironolactone [Aldactone] 1 tab PO BID 05/18/17 [History] Tamsulosin [Flomax] 2 cap PO BEDTIME 05/18/17 [History] atorvaSTATin [Lipitor] 20 mg PO BEDTIME 05/18/17 [History] Aspirin [Adult Low Dose Aspirin EC] 81 mg CHEW DAILY 04/03/19 [History] Metoprolol Tartrate 50 mg PO BID 04/03/19 [History] Nitroglycerin 0.4 mg SL ASDIRECTED PRN 04/03/19 [History] Rivaroxaban [Xarelto] 20 mg PO ACDINNER 04/03/19 [History] fluorouraciL [Fluorouracil] 1 applic TOP BID 04/03/19 [History] Past Medical History HEENT History: Reports: Impaired Vision, Other (See Below) Other HEENT History: wears glasses Cardiovascular History: Reports: Afib, Arrhythmia, High Cholesterol, Hypertension Other Cardiovascular History: hx SVT, A-fib Respiratory History: Reports: Bronchitis, Recurrent Gastrointestinal History: Reports: Colon Polyp, GERD, Hiatal Hernia Other Gastrointestinal History: hiatal hernia in the past, no heartburn or reflux since ilsa fundoplication Genitourinary History: Reports: BPH, Other (See Below) Other Genitourinary History: Urinary Frequency Musculoskeletal History: Reports: Arthritis Neurological History: Reports: None Psychiatric History: Reports: None Endocrine/Metabolic History: Reports: Obesity/BMI 30+ Insulin Pump Model and Environmental Department Manager: None Hematologic History: Reports: None Immunologic History: Reports: None Oncologic (Cancer) History: Reports: None Other Dermatologic History: presently has topical facial chemo cream to be applied twice daily due to sun damage ("preventative") - Infectious Disease History Infectious Disease History: Reports: None - Past Surgical History Head Surgeries/Procedures: Reports: None HEENT Surgical History: Reports: Tonsillectomy Cardiovascular Surgical History: Reports: Cardiac Ablation Respiratory Surgical History: Reports: None GI Surgical History: Reports: Colonoscopy, Lisa Fundoplication Neurological Surgical History: Reports: None Musculoskeletal Surgical History: Reports: Arthroscopic Knee Other Musculoskeletal Surgeries/Procedures:: MCL repair on left knee Oncologic Surgical History: Reports: None Dermatological Surgical History: Reports: Skin Biopsy Social & Family History - Family History Family Medical History: Noncontributory - Tobacco Use Smoking Status *Q: Never Smoker - Caffeine Use Caffeine Use: Reports: Coffee - Recreational Drug Use Recreational Drug Use: No Review of Systems - Review of Systems Review Of Systems: See Below ED EXAM, GENERAL - Physical Exam Exam: See Below Course - Vital Signs Last Recorded V/S: Last Vital Signs Temp 36.1 C 06/29/19 16:30 Pulse 78 06/29/19 16:30 Resp 18 06/29/19 16:30 BP 141/69 H 06/29/19 16:30 Pulse Ox 95 06/29/19 16:30 - Orders/Labs/Meds Orders: Active Orders 24 hr Category Date Time Status Vaccines to be Administered [RC] PER UNIT ROUTINE Care 06/29/19 17:16 Active Meds: Medications Discontinued Medications Generic Name Dose Route Start Last Admin Trade Name Freq PRN Reason Stop Dose Admin Bacitracin Confirm 06/29/19 17:37 06/29/19 17:48 Bacitracin Oint 1 Gm Administered 06/29/19 17:38 Not Given Dose 1 dose .ROUTE .STK-MED ONE Bacitracin 1 dose 06/29/19 17:47 06/29/19 17:48 Bacitracin Oint 1 Gm TOP 06/29/19 17:48 1 dose ONETIME ONE Administration Diphtheria/Tetanus/Acell Pertussis 0.5 ml 06/29/19 17:15 06/29/19 17:49 Adacel IM 06/29/19 17:16 0.5 ml .ONCE ONE Administration Lidocaine/Epinephrine 20 ml 06/29/19 17:34 06/29/19 17:48 Xylocaine 1% With Epinephrine 1:100,000 INJECT 06/29/19 17:35 20 ml ONETIME ONE Administration Oxycodone/Acetaminophen 1 tab 06/29/19 16:41 06/29/19 16:59 Percocet 325-5 Mg PO 06/29/19 16:42 1 tab ONETIME ONE Administration Departure - Departure Time of Disposition: 18:34 Disposition: Home, Self-Care 01 Clinical Impression: Laceration of leg, right, Right knee sprain - Discharge Information Instructions: How to Use a Knee Immobilizer, [id number] Referrals: Stefan Wetzel MD [Primary Care Provider] - Forms: ED Department Discharge Additional Instructions: The following information is given to patients seen in the emergency department who are being discharged to home. This information is to outline your options for follow-up care. We provide all patients seen in our emergency department with a follow-up referral. The need for follow-up, as well as the timing and circumstances, are variable depending upon the specifics of your emergency department visit. If you don't have a primary care physician on staff, we will provide you with a referral. We always advise you to contact your personal physician following an emergency department visit to inform them of the circumstance of the visit and for follow-up with them and/or the need for any referrals to a consulting specialist. The emergency department will also refer you to a specialist when appropriate. This referral assures that you have the opportunity for follow-up care with a specialist. All of these measure are taken in an effort to provide you with optimal care, which includes your follow-up. Under all circumstances we always encourage you to contact your private physician who remains a resource for coordinating your care. When calling for follow-up care, please make the office aware that this follow-up is from your recent emergency room visit. If for any reason you are refused follow-up, please contact the [facility] Emergency Department at and asked to speak to the emergency department charge nurse. Please see your primary care physician or return to the ER to have sutures removed in 7 to 10 days Sepsis Event Note - Evaluation Sepsis Screening Result: No Definite Risk - Focused Exam Vital Signs: Vital Signs Temp Pulse Resp BP Pulse Ox 06/29/19 16:30 36.1 C 78 18 141/69 H 95 Date Exam was Performed: 06/29/19 Time Exam was Performed: 18:31 - My Orders Last 24 Hours: My Active Orders 06/29/19 17:16 Vaccines to be Administered [RC] PER UNIT ROUTINE - Assessment/Plan Last 24 Hours: My Active Orders 06/29/19 17:16 Vaccines to be Administered [RC] PER UNIT ROUTINE
[2019-06-29] MEDS ORDERED: Diphtheria,Pertussis(Acell),Tetanus Vaccine 0.5 ML Syringe IM ONE (17:15)
[2019-06-29] MEDS ORDERED: Lidocaine 1% with EPINEPHrine 1:100,000 20 ML MDV INJECT ONE (17:34)
--- NOTE | 2019-06-29 17:34 | CR ---
Right tibia and fibula: AP and lateral views of the right tibia and fibula were obtained. Soft tissue air is noted within the anterior and lateral lower extremity. Please correlate if patient has had skin injury as the etiology. Gas-forming infection cannot be entirely excluded. Small plantar spur is noted. No acute fracture or other bony abnormality is appreciated. Impression: 1. Air within the soft tissues as noted above. 2. Small plantar spur. 3. No bony abnormality is otherwise seen within the tibia or fibula. Diagnostic code #3 This report was dictated in MDT
[2019-06-29] MEDS ORDERED: Bacitracin Oint 1 GM U/D Packet ONE (17:37)
[2019-06-29] MEDS ORDERED: Bacitracin Oint 1 GM U/D Packet TOP ONE (17:47)
[2019-06-29] MEDS ORDERED: Amoxicillin/Clavulanate K 875-125 MG Tab PO ONE (18:48)
== END 2019-06-29 19:10 | disposition home or self-care (01) ==
LOC: MW.ED 16:15
DX: S81.811A Laceration without foreign body, right lower leg, initial encounter (principal); S83.91XA Sprain of unspecified site of right knee, initial encounter; I48.91 Unspecified atrial fibrillation; E78.00 Pure hypercholesterolemia, unspecified; I10 Essential (primary) hypertension; M19.90 Unspecified osteoarthritis, unspecified site; E66.9 Obesity, unspecified; Z91.040 Latex allergy status; Z88.8 Allergy status to other drugs, medicaments and biological substances; Z91.018 Allergy to other foods; Z79.82 Long term (current) use of aspirin; Z79.899 Other long term (current) drug therapy; Z79.01 Long term (current) use of anticoagulants; Z23 Encounter for immunization; X50.1XXA Overexertion from prolonged static or awkward postures, initial encounter
CPT/HCPCS: 12032; 73590; 90471; 90715; 99283; A9270

== ENCOUNTER 2019-07-25 10:26 | Emergency (ER) | payer MEDICARE, BC ==
[2019-07-25] MEDS ORDERED: Sodium Chloride 0.9% 2.5 ML Syringe FLUSH PRN (10:34)
[2019-07-25] MEDS ORDERED: Sodium Chloride 0.9% 10 ML Syringe FLUSH PRN (10:34)
[2019-07-25] MEDS ORDERED: Ondansetron 4 MG/2 ML SDV IVPUSH ONE (10:53)
--- NOTE | 2019-07-25 10:54 | EDM.PDOC ---
ED HPI GENERAL MEDICAL PROBLEM - General Chief Complaint: Trauma Stated Complaint: BROUGHT IN VIA AMBULANCE Time Seen by Provider: 07/25/19 10:32 Source of Information: Reports: Patient, EMS - History of Present Illness INITIAL COMMENTS - FREE TEXT/NARRATIVE: History of present illness: This patient is known to have atrial fibrillation and is on again felt nauseated while sitting at his desk at work. Coworkers told EMS he then fell and hit his head. He complains of a painful lump on the right parieto-occipital area. When he tried to move his neck a little he felt a crunching sensation and it hurt. The patient's pain is worse when they touch the area on the scalp. C-collar was applied and he will be immobilized until further studies. Complaint of nausea before it happened then got better in the ambulance but there is nauseated on arrival here. No focal neurologic deficit [] Review of systems: As per history of present illness and below otherwise all systems reviewed and negative. Head-painful lump. Cardiovascular-syncope. Integumentary- diaphoresis. GI-nausea Past medical history: As per history of present illness and as reviewed below otherwise noncontributory. Surgical history: As per history of present illness and as reviewed below otherwise noncontributory. Social history: No reported history of drug or alcohol abuse. Family history: As per history of present illness and as reviewed below otherwise noncontributory. Physical exam: HEENT: There is a painful tender lump on the right parieto-occipital area of the scalp., pupils reactive, negative for conjunctival pallor or scleral icterus, mucous membranes moist, throat clear, neck slight discomfort when he tried to move it and he perceived a feeling of a crunchy sensation. Lungs: Clear to auscultation, breath sounds equal bilaterally, chest nontender. Heart: S1S2, regular, negative for clicks, rubs, or JVD. Abdomen: Soft, nondistended, nontender. Negative for masses or hepatosplenomegaly. Negative for costovertebral tenderness. Pelvis: Stable nontender. Genitourinary: Deferred. Rectal: Deferred. Extremities: Atraumatic, negative for cords or calf pain. Neurovascular unremarkable. Neuro: Awake, alert, oriented. Cranial nerves II through XII unremarkable. Cerebellum unremarkable. Motor and sensory unremarkable throughout. Exam nonfocal. Take of injury-diaphoretic Diagnostics: EKG atrial fibrillation heart rate 65 evaded T waves in V2 and V3. When compared to 05/29/2018 the only changes are elevation T wave and rate has slowed. However there is an interceding EKG on 05/31/2018 in which he was controlled and had a sinus rhythm. Impression recurrent atrial fibrillation. [] Discussed with the resident on the medicine service Dr. Curtis and admitted to Dr. aRnd [employer]: [] Impression: Syncope, nausea, diaphoresis, cervical DJD [] Plan:admitted to Dr. Rand [] Definitive disposition and diagnosis as appropriate pending reevaluation and review of above. Onset: Today, Sudden chest Pain Score (Numeric/FACES): 5 - Related Data Allergies Allergy/AdvReac Type Severity Reaction Status Date / Time latex Allergy Blisters Verified 07/25/19 11:30 lisinopril Allergy Cough Verified 07/25/19 11:30 tree nut [Pecans] Allergy throat Verified 07/25/19 11:30 swells walnuts Allergy Swelling Uncoded 07/25/19 11:30 Home Meds: Home Meds Losartan [Cozaar] 50 mg PO DAILY 05/18/17 [History] Multivitamin [Multivitamins] 1 cap PO DAILY 05/18/17 [History] Spironolactone [Aldactone] 1 tab PO BID 05/18/17 [History] Tamsulosin [Flomax] 2 cap PO BEDTIME 05/18/17 [History] atorvaSTATin [Lipitor] 20 mg PO BEDTIME 05/18/17 [History] Aspirin [Adult Low Dose Aspirin EC] 81 mg CHEW DAILY 04/03/19 [History] Metoprolol Tartrate 50 mg PO BID 04/03/19 [History] Nitroglycerin 0.4 mg SL ASDIRECTED PRN 04/03/19 [History] Rivaroxaban [Xarelto] 20 mg PO ACDINNER 04/03/19 [History] fluorouraciL [Fluorouracil] 1 applic TOP BID 04/03/19 [History] Amoxicillin/Clavulanate K [Augmentin 875-125 MG] 1 tab PO BID #10 tab 06/29/19 [Rx] Past Medical History HEENT History: Reports: Impaired Vision, Other (See Below) Other HEENT History: wears glasses Cardiovascular History: Reports: Afib, Arrhythmia, High Cholesterol, Hypertension Other Cardiovascular History: hx SVT, A-fib Respiratory History: Reports: Bronchitis, Recurrent Gastrointestinal History: Reports: Colon Polyp, GERD, Hiatal Hernia Other Gastrointestinal History: hiatal hernia in the past, no heartburn or reflux since zach fundoplication Genitourinary History: Reports: BPH, Other (See Below) Other Genitourinary History: Urinary Frequency Musculoskeletal History: Reports: Arthritis Neurological History: Reports: None Psychiatric History: Reports: None Endocrine/Metabolic History: Reports: Obesity/BMI 30+ Insulin Pump Model and Beef Lugger: None Hematologic History: Reports: None Immunologic History: Reports: None Oncologic (Cancer) History: Reports: None Other Dermatologic History: presently has topical facial chemo cream to be applied twice daily due to sun damage ("preventative") - Infectious Disease History Infectious Disease History: Reports: None - Past Surgical History Head Surgeries/Procedures: Reports: None HEENT Surgical History: Reports: Tonsillectomy Cardiovascular Surgical History: Reports: Cardiac Ablation Respiratory Surgical History: Reports: None GI Surgical History: Reports: Colonoscopy, Zach Fundoplication Neurological Surgical History: Reports: None Musculoskeletal Surgical History: Reports: Arthroscopic Knee Other Musculoskeletal Surgeries/Procedures:: MCL repair on left knee Oncologic Surgical History: Reports: None Dermatological Surgical History: Reports: Skin Biopsy Social & Family History - Family History Family Medical History: Noncontributory - Caffeine Use Caffeine Use: Reports: Coffee Review of Systems - Review of Systems Review Of Systems: Comprehensive ROS is negative, except as noted in HPI. ED EXAM, GENERAL - Physical Exam Exam: See Below Course - Vital Signs Last Recorded V/S: Last Vital Signs Temp 96.6 F L 07/25/19 10:26 Pulse 61 07/25/19 10:26 Resp 16 07/25/19 10:26 BP 134/99 H 07/25/19 10:26 Pulse Ox 93 L 07/25/19 10:26 - Orders/Labs/Meds Orders: Active Orders 24 hr Category Date Time Status EKG Documentation Completion [RC] STAT Care 07/25/19 10:34 Active Chest 1V Frontal [CR] Stat Exams 07/25/19 11:50 Ordered TROPONIN I [CHEM] Stat Lab 07/25/19 10:27 Received Sodium Chloride 0.9% [Saline Flush] Med 07/25/19 10:34 Active 10 ml FLUSH ASDIRECTED PRN Sodium Chloride 0.9% [Saline Flush] Med 07/25/19 10:34 Active 2.5 ml FLUSH ASDIRECTED PRN Saline Lock Insert [OM.PC] Stat Oth 07/25/19 10:34 Ordered Medication Orders Sodium Chloride (Saline Flush) 10 ml FLUSH ASDIRECTED PRN PRN Reason: Keep Vein Open Last Admin: 07/25/19 10:58 Dose: 10 ml Documented by: [id number] Sodium Chloride (Saline Flush) 2.5 ml FLUSH ASDIRECTED PRN PRN Reason: Keep Vein Open Last Admin: 07/25/19 10:58 Dose: 2.5 ml Documented by: [email or web address] Labs: Laboratory Tests 07/25/19 07/25/19 Range/Units 10:27 10:27 WBC 5.99 (4.0-11.0) K/uL RBC 5.22 (4.50-5.90) M/uL Hgb 15.8 (13.0-17.0) g/dL Hct 47.6 (38.0-50.0) % MCV 91.2 (80.0-98.0) fL MCH 30.3 (27.0-32.0) pg MCHC 33.2 (31.0-37.0) g/dL RDW Std Deviation 49.1 (28.0-62.0) fl RDW Coeff of Aamir 15 (11.0-15.0) % Plt Count 141 L (150-400) K/uL MPV 9.60 (7.40-12.00) fL Neut % (Auto) 59.1 (48.0-80.0) % Lymph % (Auto) 29.7 (16.0-40.0) % [place] % (Auto) 8.2 (0.0-15.0) % Eos % (Auto) 2.3 (0.0-7.0) % Baso % (Auto) 0.7 (0.0-1.5) % Neut # (Auto) 3.5 (1.4-5.7) K/uL Lymph # (Auto) 1.8 (0.6-2.4) K/uL [place] # (Auto) 0.5 (0.0-0.8) K/uL Eos # (Auto) 0.1 (0.0-0.7) K/uL Baso # (Auto) 0.0 (0.0-0.1) K/uL Nucleated RBC % 0.0 /100WBC Nucleated RBCs # 0 K/uL Sodium 141 (136-148) mmol/L Potassium 4.5 (3.5-5.1) mmol/L Chloride 108 H (98-107) mmol/L Carbon Dioxide 24.5 (21.0-32.0) mmol/L BUN 25 H (7.0-18.0) mg/dL Creatinine 1.2 (0.8-1.3) mg/dL Est Cr Clr Drug Dosing TNP Estimated GFR (MDRD) > 60.0 ml/min Glucose 118 H (74-106) mg/dL Calcium 8.7 (8.5-10.1) mg/dL Total Bilirubin 1.3 H (0.2-1.0) mg/dL AST 24 (15-37) IU/L ALT 27 (14-63) IU/L Alkaline Phosphatase 63 (46-116) U/L Total Protein 7.1 (6.4-8.2) g/dL Albumin 3.8 (3.4-5.0) g/dL Globulin 3.3 (2.6-4.0) g/dL Albumin/Globulin Ratio 1.2 (0.9-1.6) Meds: Medications Generic Name Dose Route Start Last Admin Trade Name Fretatiana PRN Reason Stop Dose Admin Sodium Chloride 10 ml 07/25/19 10:34 07/25/19 10:58 Saline Flush FLUSH 10 ml ASDIRECTED PRN Administration Keep Vein Open Sodium Chloride 2.5 ml 07/25/19 10:34 07/25/19 10:58 Saline Flush FLUSH 2.5 ml ASDIRECTED PRN Administration Keep Vein Open Discontinued Medications Generic Name Dose Route Start Last Admin Trade Name Freq PRN Reason Stop Dose Admin Ondansetron HCl 4 mg 07/25/19 10:53 07/25/19 10:58 Zofran IVPUSH 07/25/19 10:54 4 mg ONETIME ONE Administration Departure - Departure Time of Disposition: 12:02 Disposition: Refer to Observation Condition: Good Clinical Impression: Syncope and collapse, Contusion of scalp, Anticoagulant long-term use, Nausea, Diaphoresis, DJD (degenerative joint disease), cervical - Discharge Information *PRESCRIPTION DRUG MONITORING PROGRAM REVIEWED*: Not Applicable *COPY OF PRESCRIPTION DRUG MONITORING REPORT IN PATIENT NATHAN: Not Applicable Referrals: PCP,None [Primary Care Provider] - Forms: ED Department Discharge Sepsis Event Note (ED) - Focused Exam Vital Signs: Vital Signs Temp Pulse Resp BP Pulse Ox 07/25/19 10:26 96.6 F L 61 16 134/99 H 93 L - My Orders Last 24 Hours: My Active Orders 07/25/19 10:27 TROPONIN I [CHEM] Stat 07/25/19 10:34 EKG Documentation Completion [RC] STAT Sodium Chloride 0.9% [Saline Flush] 10 ml FLUSH ASDIRECTED PRN Sodium Chloride 0.9% [Saline Flush] 2.5 ml FLUSH ASDIRECTED PRN Saline Lock Insert [OM.PC] Stat 07/25/19 11:50 Chest 1V Frontal [CR] Stat - Assessment/Plan Last 24 Hours: My Active Orders 07/25/19 10:27 TROPONIN I [CHEM] Stat 07/25/19 10:34 EKG Documentation Completion [RC] STAT Sodium Chloride 0.9% [Saline Flush] 10 ml FLUSH ASDIRECTED PRN Sodium Chloride 0.9% [Saline Flush] 2.5 ml FLUSH ASDIRECTED PRN Saline Lock Insert [OM.PC] Stat 07/25/19 11:50 Chest 1V Frontal [CR] Stat
[2019-07-25 11:02] LABS: BLOOD UREA NITROGEN,BUN 25 mg/dL (7.0-18.0); CARBON DIOXIDE,CO2 24.5 mmol/L (21.0-32.0); CHLORIDE,CL 108 mmol/L (98-107); GLUCOSE RANDOM 118 mg/dL (74-106); POTASSIUM,K 4.5 mmol/L (3.5-5.1); SODIUM,NA 141 mmol/L (136-148)
--- NOTE | 2019-07-25 11:31 | CT ---
Head CT Technique: Multiple axial sections through the brain were obtained. Intravenous contrast was not utilized. Comparison: No prior intracranial imaging is available. Findings: Ventricles along with basal cisterns and sulci over convexities are mildly prominent. No abnormal parenchymal densities are seen. No evidence of intracranial hemorrhage. No midline shift or mass effect is seen. Bone window settings were reviewed. Visualized mastoid sinuses show nothing acute. Visualized paranasal sinuses show nothing acute. No acute calvarial finding is seen. Impression: 1. Mild generalized atrophy. 2. Nothing acute is identified on noncontrast head CT study. Diagnostic code #2 This report was dictated in MDT
--- NOTE | 2019-07-25 11:31 | CT ---
CT cervical spine Technique: Multiple axial sections through the cervical spine were obtained from above the C1 level inferiorly to the mid T4 level. Reconstructed sagittal and coronal images were reviewed. Findings: C2-C3: Mild disc space narrowing is seen. No central canal stenosis or neural foraminal stenosis is seen. C3-C4: Severe disc space narrowing is noted. Mild posterolateral spurring is noted on both sides. Findings cause mild right-sided neural foraminal stenosis and moderate left-sided neural foraminal stenosis. Minimal central canal stenosis is noted. C4-C5: Fusion is identified. Slight posterolateral spurring is noted on both sides. Right neural foramina is minimally narrowed. Mild left-sided neural foraminal stenosis is seen. No central canal stenosis is seen. C5-C6: Severe disc space narrowing is noted with vacuum disc phenomena. Very mild diffuse posterior disc bulge is seen. Findings are felt to cause mild central canal stenosis. Posterolateral spurring is noted on the right side. Left neural foramina is patent. Moderate narrowing is noted of the right neural foramina. C6-C7: Mild disc space narrowing is seen. Neural foramina are patent. Mild diffuse posterior disc bulge is seen. No central canal stenosis is seen. C7-T1: Posterior disc is maintained. No central canal stenosis or neural foraminal stenosis is seen. T1-T2: Mild disc space narrowing is seen. No central canal stenosis or neural foraminal stenosis is seen. T2-T3: Mild disc space narrowing is seen. No central canal stenosis or neural foraminal stenosis is seen. C3-C4: Mild disc space narrowing is noted. No central canal stenosis or neural foraminal stenosis is seen. No fracture is seen. No abnormal subluxation is seen. Impression: 1. Diffuse degenerative change as noted above. 2. Nothing acute is appreciated on CT study of the cervical spine. Diagnostic code #3 This report was dictated in MDT
--- NOTE | 2019-07-25 12:45 | CR ---
Chest: Portable view of the chest was obtained. Comparison: Prior chest x-ray of 05/29/18. Heart size and mediastinum are within normal limits for portable technique. Lungs are clear with no acute parenchymal changes. Bony structures are grossly intact. Impression: 1. Nothing acute is seen on portable chest x-ray. Diagnostic code #1 This report was dictated in MDT
== END 2019-07-25 15:39 ==
LOC: MW.ED 10:26 → UNDOADMOB 12:07 → MW.MS 12:07 → UNDOADMOB 12:21 → MW.ED 15:39
DX: S00.03XA Contusion of scalp, initial encounter (principal); M47.812 Spondylosis without myelopathy or radiculopathy, cervical region; R55 Syncope and collapse; R11.0 Nausea; R61 Generalized hyperhidrosis; I48.91 Unspecified atrial fibrillation; E78.00 Pure hypercholesterolemia, unspecified; I10 Essential (primary) hypertension; M19.90 Unspecified osteoarthritis, unspecified site; E66.9 Obesity, unspecified; Z68.37 Body mass index [BMI] 37.0-37.9, adult; Z91.040 Latex allergy status; Z88.8 Allergy status to other drugs, medicaments and biological substances; Z91.018 Allergy to other foods; Z79.82 Long term (current) use of aspirin; Z79.01 Long term (current) use of anticoagulants; Z79.899 Other long term (current) drug therapy; W22.8XXA Striking against or struck by other objects, initial encounter
CPT/HCPCS: 36415; 70450; 71045; 72125; 80053; 84484; 85025; 93005; 96374; 99285; J2405

== ENCOUNTER 2019-12-30 21:41 | Emergency (ER) | payer MEDICARE, BC ==
[2019-12-30] MEDS ORDERED: Sodium Chloride 0.9% 2.5 ML Syringe FLUSH PRN (21:52)
[2019-12-30] MEDS ORDERED: Sodium Chloride 0.9% 10 ML Syringe FLUSH PRN (21:52)
--- NOTE | 2019-12-30 21:56 | EDM.PDOC ---
ED HPI GENERAL MEDICAL PROBLEM - General Chief Complaint: Cardiovascular Problem Stated Complaint: CHEST PAIN Time Seen by Provider: 12/30/19 21:51 Source of Information: Reports: Patient History Limitations: Reports: No Limitations - History of Present Illness INITIAL COMMENTS - FREE TEXT/NARRATIVE: 69-year-old male with history of HTN, HLD, Afib on Xarelto, ACS presents with left-sided chest pain. He was watching TV when he started noticing the chest pain. Pain is localized to the left chest and radiates to the left shoulder and left upper extremity, rated 4/10 at that time, currently rated 2/10. With no alleviating or exacerbating factors. Associated with shortness of breath, palpitation, malaise, nausea. She denies fever, chills, generalized myalgia, abdominal pain, vomiting. She has been feeling really tired over the weekend and he slept through most of the weekend. She took 81 mg ASA prior to arrival. He does admit to having intermittent chest pain over the past couple months but today's episode lasted longer. He is status post cardiac ablation on 10/13 at [facility]. ROS: A 10-point review of systems, other than pertinent positives and negatives as stated per HPI, is otherwise negative Past medical history: No additional pertinent history Past Surgical history: No additional pertinent history Social history: No additional pertinent history Family history: No additional pertinent history PHYSICAL EXAM General: AOx4, GCS = 15, No distress HEENT: dry mucous membrane Neck: supple, no meningismus, no Kernig or Brudzinski Cardiac: Irregular rhythm, rate controlled. Respiratory: CTAB, no crackles or rales, no wheezing Abdomen: Soft, nontender, no rebound or guarding, nondistended, no pulsatile mass. Back: nontender Musculoskeletal: NVI distally, no deformity Neuro: No focal deficits, CN 2 - 12 WNL. Onset: Today, Gradual Left Chest Pain Score (Numeric/FACES): 2 - Related Data Allergies Allergy/AdvReac Type Severity Reaction Status Date / Time latex Allergy Blisters Verified 12/30/19 21:44 lisinopril Allergy Cough Verified 12/30/19 21:44 tree nut [Pecans] Allergy throat Verified 12/30/19 21:44 swells walnuts Allergy Swelling Uncoded 12/30/19 21:44 Home Meds: Home Meds Losartan [Cozaar] 25 mg PO DAILY 05/18/17 [History] Multivitamin [Multivitamins] 1 cap PO DAILY 05/18/17 [History] Spironolactone [Aldactone] 1 tab PO BID 05/18/17 [History] Tamsulosin [Flomax] 2 cap PO BEDTIME 05/18/17 [History] atorvaSTATin [Lipitor] 20 mg PO BEDTIME 05/18/17 [History] Aspirin [Adult Low Dose Aspirin EC] 81 mg CHEW DAILY 04/03/19 [History] Metoprolol Tartrate 50 mg PO BID 04/03/19 [History] Rivaroxaban [Xarelto] 20 mg PO ACDINNER 04/03/19 [History] Past Medical History HEENT History: Reports: Impaired Vision, Other (See Below) Other HEENT History: wears glasses Cardiovascular History: Reports: Afib, Arrhythmia, High Cholesterol, Hypertension Other Cardiovascular History: hx SVT, A-fib Respiratory History: Reports: Bronchitis, Recurrent Gastrointestinal History: Reports: Colon Polyp, GERD, Hiatal Hernia Other Gastrointestinal History: hiatal hernia in the past, no heartburn or reflux since zach fundoplication Genitourinary History: Reports: BPH, Other (See Below) Other Genitourinary History: Urinary Frequency Musculoskeletal History: Reports: Arthritis Neurological History: Reports: None Psychiatric History: Reports: None Endocrine/Metabolic History: Reports: Obesity/BMI 30+ Insulin Pump Model and Liner Installer: None Hematologic History: Reports: None Immunologic History: Reports: None Oncologic (Cancer) History: Reports: None Other Dermatologic History: presently has topical facial chemo cream to be applied twice daily due to sun damage ("preventative") - Infectious Disease History Infectious Disease History: Reports: None - Past Surgical History Head Surgeries/Procedures: Reports: None HEENT Surgical History: Reports: Tonsillectomy Cardiovascular Surgical History: Reports: Cardiac Ablation, Other (See Below) Other Cardiovascular Surgeries/Procedures: Cardiac ablation 10/11/19 Respiratory Surgical History: Reports: None GI Surgical History: Reports: Colonoscopy, Zach Fundoplication Neurological Surgical History: Reports: None Musculoskeletal Surgical History: Reports: Arthroscopic Knee Other Musculoskeletal Surgeries/Procedures:: MCL repair on left knee Oncologic Surgical History: Reports: None Dermatological Surgical History: Reports: Skin Biopsy Social & Family History - Family History Family Medical History: No Pertinent Family History - Tobacco Use Tobacco Use Status *Q: Never Tobacco User - Caffeine Use Caffeine Use: Reports: None - Recreational Drug Use Recreational Drug Use: No ED ROS GENERAL - Review of Systems Review Of Systems: See Below (see dictation) ED EXAM, GENERAL - Physical Exam Exam: See Below (see dictation) #1 Interpretation EKG Interpretation Comments: Heart rate = 84 bpm, atrial fibrillation, normal QRS interval, no STEMI. EKG and rhythm strip interpreted by me at [id number] Course - Vital Signs Last Recorded V/S: Last Vital Signs Temp 97.9 F 12/30/19 21:44 Pulse 83 12/30/19 22:43 Resp 20 12/30/19 22:43 BP 127/90 12/30/19 22:43 Pulse Ox 95 12/30/19 22:43 - Orders/Labs/Meds Orders: Active Orders 24 hr Category Date Time Status Cardiac Monitoring [RC] . DIRECTED Care 12/30/19 21:52 Active EKG Documentation Completion [RC] STAT Care 12/30/19 21:52 Active Pulse Oximetry [RC] ASDIRECTED Care 12/30/19 21:52 Active CORONAVIRUS COVID-19 COREY [MOLEC] Stat Lab 12/30/19 22:10 Received TROPONIN I [CHEM] Stat Lab 12/30/19 22:55 Received Nitroglycerin [Nitrostat] Med 12/30/19 22:08 Active 0.4 mg SL Q5M PRN Sodium Chloride 0.9% [Saline Flush] Med 12/30/19 21:52 Active 10 ml FLUSH ASDIRECTED PRN Sodium Chloride 0.9% [Saline Flush] Med 12/30/19 21:52 Active 2.5 ml FLUSH ASDIRECTED PRN Saline Lock Insert [OM.PC] Stat Oth 12/30/19 21:52 Ordered Medication Orders Nitroglycerin (Nitrostat) 0.4 mg SL Q5M PRN PRN Reason: Chest Pain Sodium Chloride (Saline Flush) 10 ml FLUSH ASDIRECTED PRN PRN Reason: Keep Vein Open Sodium Chloride (Saline Flush) 2.5 ml FLUSH ASDIRECTED PRN PRN Reason: Keep Vein Open Labs: Laboratory Tests 12/30/19 12/30/19 12/30/19 Range/Units 21:45 21:45 21:45 WBC 6.97 (4.0-11.0) K/uL RBC 5.78 (4.50-5.90) M/uL Hgb 17.8 H (13.0-17.0) g/dL Hct 52.5 H (38.0-50.0) % MCV 90.8 (80.0-98.0) fL MCH 30.8 (27.0-32.0) pg MCHC 33.9 (31.0-37.0) g/dL RDW Std Deviation 46.1 (28.0-62.0) fl RDW Coeff of Aamir 14 (11.0-15.0) % Plt Count 151 (150-400) K/uL MPV 9.60 (7.40-12.00) fL Neut % (Auto) 58.8 (48.0-80.0) % Lymph % (Auto) 31.0 (16.0-40.0) % Thayer % (Auto) 7.6 (0.0-15.0) % Eos % (Auto) 2.3 (0.0-7.0) % Baso % (Auto) 0.3 (0.0-1.5) % Neut # (Auto) 4.1 (1.4-5.7) K/uL Lymph # (Auto) 2.2 (0.6-2.4) K/uL Thayer # (Auto) 0.5 (0.0-0.8) K/uL Eos # (Auto) 0.2 (0.0-0.7) K/uL Baso # (Auto) 0.0 (0.0-0.1) K/uL Nucleated RBC % 0.0 /100WBC Nucleated RBCs # 0 K/uL INR 1.21 Sodium 143 (136-148) mmol/L Potassium 3.9 (3.5-5.1) mmol/L Chloride 106 (98-107) mmol/L Carbon Dioxide 25.5 (21.0-32.0) mmol/L BUN 25 H (7.0-18.0) mg/dL Creatinine 1.3 (0.8-1.3) mg/dL Est Cr Clr Drug Dosing 60.52 mL/min Estimated GFR (MDRD) 55.1 ml/min Glucose 116 H (74-106) mg/dL Calcium 8.9 (8.5-10.1) mg/dL Total Bilirubin 1.3 H (0.2-1.0) mg/dL AST 22 (15-37) IU/L ALT 33 (14-63) IU/L Alkaline Phosphatase 104 (46-116) U/L Troponin I 0.323 H* (0.000-0.056) ng/mL Total Protein 7.8 (6.4-8.2) g/dL Albumin 4.1 (3.4-5.0) g/dL Globulin 3.7 (2.6-4.0) g/dL Albumin/Globulin Ratio 1.1 (0.9-1.6) SARS CoV-2 RNA Rapid COREY (NEGATIVE) 12/30/19 Range/Units 22:30 WBC (4.0-11.0) K/uL RBC (4.50-5.90) M/uL Hgb (13.0-17.0) g/dL Hct (38.0-50.0) % MCV (80.0-98.0) fL MCH (27.0-32.0) pg MCHC (31.0-37.0) g/dL RDW Std Deviation (28.0-62.0) fl RDW Coeff of Aamir (11.0-15.0) % Plt Count (150-400) K/uL MPV (7.40-12.00) fL Neut % (Auto) (48.0-80.0) % Lymph % (Auto) (16.0-40.0) % Thayer % (Auto) (0.0-15.0) % Eos % (Auto) (0.0-7.0) % Baso % (Auto) (0.0-1.5) % Neut # (Auto) (1.4-5.7) K/uL Lymph # (Auto) (0.6-2.4) K/uL Thayer # (Auto) (0.0-0.8) K/uL Eos # (Auto) (0.0-0.7) K/uL Baso # (Auto) (0.0-0.1) K/uL Nucleated RBC % /100WBC Nucleated RBCs # K/uL INR Sodium (136-148) mmol/L Potassium (3.5-5.1) mmol/L Chloride (98-107) mmol/L Carbon Dioxide (21.0-32.0) mmol/L BUN (7.0-18.0) mg/dL Creatinine (0.8-1.3) mg/dL Est Cr Clr Drug Dosing mL/min Estimated GFR (MDRD) ml/min Glucose (74-106) mg/dL Calcium (8.5-10.1) mg/dL Total Bilirubin (0.2-1.0) mg/dL AST (15-37) IU/L ALT (14-63) IU/L Alkaline Phosphatase (46-116) U/L Troponin I (0.000-0.056) ng/mL Total Protein (6.4-8.2) g/dL Albumin (3.4-5.0) g/dL Globulin (2.6-4.0) g/dL Albumin/Globulin Ratio (0.9-1.6) SARS CoV-2 RNA Rapid COREY NEGATIVE (NEGATIVE) Meds: Medications Generic Name Dose Route Start Last Admin Trade Name Mariposa PRN Reason Stop Dose Admin Nitroglycerin 0.4 mg 12/30/19 22:08 Nitrostat SL Q5M PRN Chest Pain Sodium Chloride 10 ml 12/30/19 21:52 Saline Flush FLUSH ASDIRECTED PRN Keep Vein Open Sodium Chloride 2.5 ml 12/30/19 21:52 Saline Flush FLUSH ASDIRECTED PRN Keep Vein Open Discontinued Medications Generic Name Dose Route Start Last Admin Trade Name Freq PRN Reason Stop Dose Admin Aspirin 243 mg 12/30/19 22:17 12/30/19 22:24 Aspirin PO 12/30/19 22:18 243 mg ONETIME ONE Administration Aspirin Confirm 12/30/19 22:19 12/30/19 22:24 Aspirin Administered 12/30/19 22:20 Not Given Dose 243 mg .ROUTE .STK-MED ONE - Re-Assessments/Exams Free Text/Narrative Re-Assessment/Exam: 12/30/19 22:07 Ordered sublingual nitroglycerin for chest pain rated 2/10. 12/30/19 22:24 Patient declined sublingual nitro, his chest pain is now 1/10. He will require transfer to outside facility for the need of higher level of care not available at this facility, and the need for residential solar consultant services unavailable at this facility. Any emergency conditions have been stabilized to the ability of the ED prior to the transfer. [facility] Caballero is on diversion. 12/30/19 23:[address] [facility], Dr. Leal will accept patient. Departure - Departure Time of Disposition: 22:49 Disposition: DC/Tfer to Other 70 Reason for Transfer *Q: Primary PCI Indicated Condition: Good Clinical Impression: NSTEMI (non-ST elevated myocardial infarction) Referrals: PCP,None [Primary Care Provider] - Forms: ED Department Discharge Critical Care Note - Critical Care Note Total Time (mins): 40 Comments: CRITCAL CARE: The high probability of sudden, clinically significant deterioration in the patient's condition required the highest level of my preparedness to intervene urgently. The services I provided to this patient were to treat and/or prevent clinically significant deterioration. Services included the following: chart data review, reviewing nursing notes and/or old charts, documentation time, residential solar consultant collaboration regarding findings and treatment options, medication orders and management, direct patient care, vital sign assessments and ordering, interpreting and reviewing diagnostic studies/lab tests. Aggregate critical care time includes only time during which I was engaged in work directly related to the patient's care, as described above, whether at the bedside or elsewhere in the Emergency Department. It did not include time spent performing other reported procedures or the services of residents, students, nurses or physician assistants. Frequent interventions and/or frequent repeat evaluations were required as well as counseling and coordination of care regarding prognosis, treatments, and discussions with patient, staff and consultants. Critical Care (excluding other procedures): 40 minutes Sepsis Event Note (ED) - Evaluation Sepsis Screening Result: No Definite Risk - Focused Exam Vital Signs: Vital Signs Temp Pulse Resp BP Pulse Ox 12/30/19 22:43 83 20 127/90 95 12/30/19 22:28 79 114/72 95 12/30/19 22:13 80 134/105 H 94 L 12/30/19 21:44 97.9 F 86 24 H 149/99 H 97 - My Orders Last 24 Hours: My Active Orders 12/30/19 21:52 Cardiac Monitoring [RC] . DIRECTED EKG Documentation Completion [RC] STAT Pulse Oximetry [RC] ASDIRECTED Sodium Chloride 0.9% [Saline Flush] 10 ml FLUSH ASDIRECTED PRN Sodium Chloride 0.9% [Saline Flush] 2.5 ml FLUSH ASDIRECTED PRN Saline Lock Insert [OM.PC] Stat 12/30/19 22:08 Nitroglycerin [Nitrostat] 0.4 mg SL Q5M PRN 12/30/19 22:10 CORONAVIRUS COVID-19 COREY [MOLEC] Stat 12/30/19 22:55 TROPONIN I [CHEM] Stat - Assessment/Plan Last 24 Hours: My Active Orders 12/30/19 21:52 Cardiac Monitoring [RC] . DIRECTED EKG Documentation Completion [RC] STAT Pulse Oximetry [RC] ASDIRECTED Sodium Chloride 0.9% [Saline Flush] 10 ml FLUSH ASDIRECTED PRN Sodium Chloride 0.9% [Saline Flush] 2.5 ml FLUSH ASDIRECTED PRN Saline Lock Insert [OM.PC] Stat 12/30/19 22:08 Nitroglycerin [Nitrostat] 0.4 mg SL Q5M PRN 12/30/19 22:10 CORONAVIRUS COVID-19 COREY [MOLEC] Stat 12/30/19 22:55 TROPONIN I [CHEM] Stat
[2019-12-30] MEDS ORDERED: Nitroglycerin 0.4 MG Tab.SL SL PRN (22:08)
[2019-12-30 22:13] LABS: CARBON DIOXIDE,CO2 25.5 mmol/L (21.0-32.0); POTASSIUM,K 3.9 mmol/L (3.5-5.1)
[2019-12-30] MEDS ORDERED: Aspirin 81 MG Tab.Chew PO ONE (22:17)
[2019-12-30] MEDS ORDERED: Aspirin 81 MG Tab.Chew ONE (22:19)
--- NOTE | 2019-12-30 22:43 | CR ---
HISTORY: Chest pain COMPARISON: 07/25/2019 FINDINGS: A portable erect AP view of the chest was obtained at 22 14 hours. The lungs remain clear. No focal or diffuse infiltrates are present. The heart remains normal in size. The mediastinum is normal in appearance. The osseous structures are normal in appearance for the patient`s age. IMPRESSION: Normal portable chest single view. Dictated by Cornell Sanford MD @ Dec 30 2019 10:40PM Signed by Dr. Cornell Sanford @ Dec 30 2019 10:41PM
[2019-12-30] MEDS ORDERED: Nitroglycerin 2% Oint 1 GM UD Packet TOP ONE (23:11)
== END 2019-12-31 01:21 | disposition other institution (70) ==
LOC: MW.ED 21:41
DX: I21.4 Non-ST elevation (NSTEMI) myocardial infarction (principal); I10 Essential (primary) hypertension; I48.91 Unspecified atrial fibrillation; E78.00 Pure hypercholesterolemia, unspecified; M19.90 Unspecified osteoarthritis, unspecified site; E66.9 Obesity, unspecified; Z68.37 Body mass index [BMI] 37.0-37.9, adult; Z91.040 Latex allergy status; Z88.8 Allergy status to other drugs, medicaments and biological substances; Z91.010 Allergy to peanuts; Z79.82 Long term (current) use of aspirin; Z79.899 Other long term (current) drug therapy; Z20.828 Contact with and (suspected) exposure to other viral communicable diseases
CPT/HCPCS: 36415; 71045; 80053; 84484; 85025; 85610; 93005; 99291; A9270; U0002; 93010

== ENCOUNTER 2020-03-07 13:39 | Emergency (ER) | payer MEDICARE, BC ==
--- NOTE | 2020-03-07 14:15 | EDM.PDOC ---
ED HPI GENERAL MEDICAL PROBLEM - General Chief Complaint: Laceration Stated Complaint: LACERATION TO LEFT HAND Time Seen by Provider: 03/07/20 13:40 Source of Information: Reports: Patient History Limitations: Reports: No Limitations - History of Present Illness INITIAL COMMENTS - FREE TEXT/NARRATIVE: 70-year-old male on Eliquis for A. fib presents status post dropping a TV on his hand with laceration. Patient denies pain. He has a linear laceration to the dorsum of his left hand with no active bleeding. left hand Pain Score (Numeric/FACES): 4 - Related Data Allergies Allergy/AdvReac Type Severity Reaction Status Date / Time latex Allergy Blisters Verified 03/07/20 13:57 lisinopril Allergy Cough Verified 03/07/20 13:57 tree nut [Pecans] Allergy throat Verified 03/07/20 13:57 swells walnuts Allergy Swelling Uncoded 03/07/20 13:57 Home Meds: Home Meds Losartan [Cozaar] 25 mg PO DAILY 05/18/17 [History] Multivitamin [Multivitamins] 1 cap PO DAILY 05/18/17 [History] Spironolactone [Aldactone] 1 tab PO BID 05/18/17 [History] Tamsulosin [Flomax] 2 cap PO BEDTIME 05/18/17 [History] atorvaSTATin [Lipitor] 20 mg PO BEDTIME 05/18/17 [History] Aspirin [Adult Low Dose Aspirin EC] 81 mg CHEW DAILY 04/03/19 [History] Metoprolol Tartrate 50 mg PO BID 04/03/19 [History] Rivaroxaban [Xarelto] 20 mg PO ACDINNER 04/03/19 [History] Past Medical History HEENT History: Reports: Impaired Vision, Other (See Below) Other HEENT History: wears glasses Cardiovascular History: Reports: Afib, Arrhythmia, High Cholesterol, Hypertension Other Cardiovascular History: hx SVT, A-fib Respiratory History: Reports: Bronchitis, Recurrent Gastrointestinal History: Reports: Colon Polyp, GERD, Hiatal Hernia Other Gastrointestinal History: hiatal hernia in the past, no heartburn or reflux since lisa fundoplication Genitourinary History: Reports: BPH, Other (See Below) Other Genitourinary History: Urinary Frequency Musculoskeletal History: Reports: Arthritis Neurological History: Reports: None Psychiatric History: Reports: None Endocrine/Metabolic History: Reports: Obesity/BMI 30+ Insulin Pump Model and Sewage Disposal Worker: None Hematologic History: Reports: None Immunologic History: Reports: None Oncologic (Cancer) History: Reports: None Other Dermatologic History: presently has topical facial chemo cream to be applied twice daily due to sun damage ("preventative") - Infectious Disease History Infectious Disease History: Reports: None - Past Surgical History Head Surgeries/Procedures: Reports: None HEENT Surgical History: Reports: Tonsillectomy Cardiovascular Surgical History: Reports: Cardiac Ablation, Other (See Below) Other Cardiovascular Surgeries/Procedures: Cardiac ablation 10/11/19 Respiratory Surgical History: Reports: None GI Surgical History: Reports: Colonoscopy, Lisa Fundoplication Neurological Surgical History: Reports: None Musculoskeletal Surgical History: Reports: Arthroscopic Knee Other Musculoskeletal Surgeries/Procedures:: MCL repair on left knee Oncologic Surgical History: Reports: None Dermatological Surgical History: Reports: Skin Biopsy Social & Family History - Family History Family Medical History: No Pertinent Family History - Caffeine Use Caffeine Use: Reports: None - Recreational Drug Use Recreational Drug Use: No ED ROS GENERAL - Review of Systems Review Of Systems: Comprehensive ROS is negative, except as noted in HPI. ED EXAM, SKIN/RASH Exam: See Below Exam Limited By: No Limitations General Appearance: Alert, WD/WN, No Apparent Distress Throat/Mouth: Normal Voice, No Airway Compromise Head: Atraumatic, Normocephalic Respiratory/Chest: No Respiratory Distress, No Accessory Muscle Use Cardiovascular: Normal Peripheral Pulses Extremities: Other (5 cm linear superficial laceration to dorsum of left hand without foreign bodies, no muscle or tendon involvement, not actively bleeding) Neurological: Alert, Normal Gait Psychiatric: Normal Affect, Normal Mood Skin: Warm, Dry, Intact, Normal Color ED SKIN PROCEDURES - Laceration/Wound Repair Left Dorsal Hand Appearance: Superficial, Subcutaneous Distal NVT: Neuro & Vascular Intact Anesthetic Type: Local Local Anesthesia - Lidocaine (Xylocaine): 1% with EPI Local Anesthetic Volume: 5cc Skin Prep: Providone-Iodine (Betadine) Saline Irrigation (cc's): 50 Closed with: Sutures Lac/Wound length In cm: 5 Suture Size: 4-0 Suture Type: Nylon Sterile Dressing Applied: Nurse Tetanus Status Addressed: Yes Complications: No Course - Vital Signs Last Recorded V/S: Last Vital Signs Temp 97.8 F 03/07/20 13:46 Pulse 78 03/07/20 13:46 Resp 16 03/07/20 13:46 BP 146/76 H 03/07/20 13:46 Pulse Ox 96 03/07/20 13:46 - Re-Assessments/Exams Free Text/Narrative Re-Assessment/Exam: 03/07/20 14:14 Laceration repaired as noted. Patient's last tetanus update was last year. Departure - Departure Time of Disposition: 14:15 Disposition: Home, Self-Care 01 Condition: Good Clinical Impression: Laceration of hand Qualifiers: Encounter type: initial encounter Foreign body presence: without foreign body Laterality: left Qualified Code(s): S61.412A - Laceration without foreign body of left hand, initial encounter - Discharge Information Instructions: Laceration Care, Adult Referrals: PCP,None [Primary Care Provider] - Additional Instructions: He will need to return in 7 to 10 days to have sutures removed. Look out for signs of infection including increasing redness, swelling, pain, drainage of pus from the site. The following information is given to patients seen in the emergency department who are being discharged to home. This information is to outline your options for follow-up care. We provide all patients seen in our emergency department with a follow-up referral. The need for follow-up, as well as the timing and circumstances, are variable depending upon the specifics of your emergency department visit. If you don't have a primary care physician on staff, we will provide you with a referral. We always advise you to contact your personal physician following an emergency department visit to inform them of the circumstance of the visit and for follow-up with them and/or the need for any referrals to a consulting specialist. The emergency department will also refer you to a specialist when appropriate. This referral assures that you have the opportunity for follow-up care with a specialist. All of these measure are taken in an effort to provide you with optimal care, which includes your follow-up. Under all circumstances we always encourage you to contact your private physician who remains a resource for coordinating your care. When calling for follow-up care, please make the office aware that this follow-up is from your recent emergency room visit. If for any reason you are refused follow-up, please contact the Emergency Department at and asked to speak to the emergency department charge nurse. Please follow up with your primary care physician. If you do not have a primary care physician, see below: [facility] [address], [place] [id number] [facility] [address] [place], [place] [id number] [facility] [address] [place] [address] Sepsis Event Note (ED) - Evaluation Sepsis Screening Result: No Definite Risk - Focused Exam Vital Signs: Vital Signs Temp Pulse Resp BP Pulse Ox 03/07/20 13:46 97.8 F 78 16 146/76 H 96
== END 2020-03-07 14:35 | disposition home or self-care (01) ==
LOC: MW.ED 13:39
DX: S61.412A Laceration without foreign body of left hand, initial encounter (principal); I10 Essential (primary) hypertension; E66.9 Obesity, unspecified; I48.91 Unspecified atrial fibrillation; E78.00 Pure hypercholesterolemia, unspecified; N40.0 Benign prostatic hyperplasia without lower urinary tract symptoms; Z91.040 Latex allergy status; Z91.018 Allergy to other foods; Z88.8 Allergy status to other drugs, medicaments and biological substances; Z79.01 Long term (current) use of anticoagulants; Z79.82 Long term (current) use of aspirin; Z79.899 Other long term (current) drug therapy; W22.8XXA Striking against or struck by other objects, initial encounter
CPT/HCPCS: 12002; 99282; 99282-25